=== PATIENT | female | born 1955 | race Caucasian/White ===

== ENCOUNTER 2020-03-28 14:47 | Outpatient (CLI) | payer OTHER, SELFPAY ==
--- NOTE | ~2020-03-28 | MM_ITS ---
EXAMINATION: MM screening [facility] BI w sobeida HISTORY: Screening mammogram TECHNIQUE: Craniocaudal and mediolateral oblique 3-D tomosynthesis images were obtained and synthetic 2-D images were generated. CAD analysis was submitted and interpreted. COMPARISON: Comparison to multiple prior studies sequentially, with oldest reviewed study dated 02/2012. BREAST PARENCHYMAL COMPOSITION: Breast composed of scattered areas of fibroglandular density FINDINGS: Postsurgical changes in the left breast are unchanged, consistent with previous lumpectomy. There is no evidence of suspicious mass, calcification, or architectural distortion to suggest malig anirudh in either breast. There has been no suspicious interval change. IMPRESSION: 1. No mammographic evidence of malignancy. 2. Recommend routine screening mammography in one year. BI-RADS Category 2: Benign finding(s). Reviewed, dictated and finalized at location A.
== END 2020-03-28 14:48 | disposition home or self-care (01) ==
LOC: ANHIMG 14:52
DX: Z12.31 Encounter for screening mammogram for malignant neoplasm of breast (principal)
CPT/HCPCS: 77063; 77067

== ENCOUNTER 2021-09-27 05:44 | Emergency (ER) | payer MEDICARE, OTHER, SELFPAY ==
--- NOTE | ~2021-09-27 | XR_ITS ---
EXAMINATION: XR chest 1V portable DATE: 09/27/2021 07:11 INDICATION: Chest pain. TECHNIQUE: A single frontal view of the chest was obtained. COMPARISON: None. FINDINGS: There are mild airspace opacities in the lower lung zones. No pleural effusion or pneumotho rax. The heart size is normal. IMPRESSION: 1. Mild airspace opacities in the lower lung zones, consistent with atelectasis versus pneumonia. Reviewed, dictated and finalized at location A. LATION INSPECTOR
[2021-09-27 05:47] VITALS: BP 175/95; PULSE 110; RESP 18; TEMP 35.8; O2SAT 100
[2021-09-27] MEDS: SODIUM CHLORIDE 0.9% IV 1,000 ML 999 ML IV CONT (06:19)
--- NOTE | 2021-09-27 06:30 | ECG_ITS ---
Measurements Intervals [place] Rate: 98 P: 64 KS: 165 QRS: 187 QRSD: 131 T: 12 QT: 388 QTc: 497 Interpretive Statements SINUS RHYTHM RIGHT BUNDLE BRANCH BLOCK LEFT POSTERIOR FASCICULAR BLOCK ABNORMAL ECG Electronically Signed On 09-27-2021 6:51:37 [employer]ENTERING MACHINE FEEDER by Hayder Stuart D.O.
[2021-09-27] MEDS: ASPIRIN 325 MG ENTERIC TABLET PO (06:40)
[2021-09-27 06:52] LABS: Basophils Absolute Auto 0.04 K/mm3 (0.00-0.10); Basophils Percent Auto 0.9 % (0.0-1.0); Eosinophils Absolute Auto 0.15 K/mm3 (0.02-0.50); Eosinophils Percent Auto 3.3 % (1.0-6.0); Hematocrit 40.8 % (35.0-42.0); Hemoglobin 13.4 g/dL (11.7-13.8); Immature Granulocyte Absolute 0.01 K/mm3 (0.00-0.00); Immature Granulocyte Percent A 0.2 % (0.0-0.0); Lymphocytes Percent Auto 36.9 % (18.0-42.0); Mean Corpuscular HGB Conc 32.8 g/dL (32.0-36.0); Mean Corpuscular Hemoglobin 28.6 pg (27.0-31.0); Mean Corpuscular Volume 87.2 fL (78.0-102.0); Mean Platelet Volume 9.6 fl (9.2-11.8); Monocytes Absolute Auto 0.39 K/mm3 (0.10-0.90); Monocytes Percent Auto 8.5 % (2.0-11.0); Neutrophils Absolute Auto 2.3 K/mm3 (1.7-7.2); Neutrophils Percent Auto 50.2 % (50.0-70.0); Platelet Count Result 323 K/mm3 (150-420); Red Blood Count 4.68 M/mm3 (4.20-5.40); Red Cell Distribution Width 13.5 % (11.6-14.4); White Blood Count 4.6 K/mm3 (4.8-10.8)
[2021-09-27 07:14] LABS: Alanine Aminotransferase 24 U/L (14-59); Albumin Level 3.6 g/dL (3.4-5.0); Alkaline Phosphatase 80 U/L (46-116); Anion Gap 8 mmol/L (8-16); Aspartate Amino Transferase 14 U/L (15-37); Bilirubin,Total 0.6 mg/dL (0.00-1.00); Blood Urea Nitrogen 20 mg/dL (7-18); Calcium 9.1 mg/dL (8.5-10.1); Carbon Dioxide 29 mmol/L (21-32); Chloride 104 mmol/L (98-108); Estimated CRCL calculation 60 ml/min; Estimated Glomerular Filt Rate > 60; Glucose 121 mg/dL (70-99); Osmolality Calculated 295 mOsm/kg (285-295); Potassium 4.1 mmol/L (3.5-5.1); Sodium 141 mmol/L (136-145); Total Protein 7.1 g/dL (6.4-8.2); Troponin I 5.9 ng/L (0.00-60.4)
[2021-09-27 07:15] LABS: Ethanol < 3 mg/dL (0-6)
[2021-09-27 07:26] VITALS: BP 148/90; PULSE 85; RESP 17; O2SAT 97
--- NOTE | 2021-09-27 07:29 | ED.GENADULT ---
HPI - General Adult General Chief complaint: Unspecified Stated complaint: Heart Racing Related Data Home Medications Medication Instructions Recorded Confirmed ascorbic acid (vitamin C) 500 mg 500 mg PO DAILY 08/05/21 09/27/21 tablet calcium carbonate 500 mg calcium 500 mg PO DAILY 08/05/21 (1,250 mg) tablet cholecalciferol (vitamin D3) 50 100 mcg PO DAILY cap 08/05/21 mcg (2,000 unit) capsule cranberry 400 mg capsule 400 mg PO DAILY 08/05/21 glucosamine sulfate 500 mg tablet 500 mg PO DAILY 08/05/21 omega-3 fatty acids 1,000 mg 1,000 mg PO DAILY 08/05/21 capsule sertraline 50 mg tablet 50 mg PO DAILY 08/05/21 09/27/21 simvastatin 40 mg tablet 40 mg PO DAILY 08/05/21 09/27/21 Allergies Allergy/AdvReac Type Severity Reaction Status Date / Time ampicillin Allergy Severe unknown Verified 09/27/21 06:32 sulfamethoxazole Allergy unknown Verified 09/27/21 06:32 trimethoprim Allergy unknown Verified 09/27/21 06:32 Review of Systems Review of Systems: All systems reviewed & are unremarkable except as noted in HPI and below PMFSH Past Medical History Medical History (Updated 09/27/21 @ 07:34 by Florentin Mccracken MD) Breast cancer Left-2009 Depression Generalized anxiety disorder Hypercholesteremia Surgical History Surgical History (Updated 08/05/21 @ 13:06 by Jamila Herman MA) History of appendectomy History of hysterectomy History of lumpectomy of left breast Family History Family History (Updated 08/05/21 @ 13:07 by Jamila Herman MA) Mother Cancer Heart disease Heart attack Social History Social History (Updated 08/05/21 @ 13:07 by Jamila Herman MA) Smoking status: Never smoker Alcohol intake: current Alcohol use details: social Substance use: never Substance use type: does not use Additional living arrangements comments: Gender identity (if verbalized by the patient): Female Exam Const: General: cooperative, healthy appearing, comfortable and no acute distress HENMT: Head: normal to inspection Eyes: General: appearance normal, both eyes and all related structures Neck: Neck: normal visual inspection, full ROM and no lymphadenopathy Chest: Chest palpation & inspection: normal inspection of the chest and normal palpation of entire chest wall Resp: Effort & Inspection: normal respiratory effort and able to speak in complete sentences Auscultation: clear to auscultation bilaterally Cardio: Jugular venous distension: no JVD Palpation: normal PMI Rate: tachycardic Rhythm: regular rhythm GI: Inspection: normal to inspection Back/Spine/Pelvis: Back: no CVA tenderness Skin: General skin exam: normal color and no rashes or lesions noted Neuro: General: oriented to person, oriented to place and oriented to time Extrem: General: normal to inspection, full ROM and capillary refill normal Psych: Appearance: grossly normal and well kempt Course Course Emergency Course: patient findings have improved current blood pressure 148/90 with heart rate of 85 reviewed x-ray with patient findings atelectasis versus opacity and will start patient on antibiotic. Vital Signs Vital signs: Vital Signs Temperature 35.8 C L 09/27/21 05:47 Pulse Rate 110 H 09/27/21 05:47 Respiratory Rate 18 09/27/21 05:47 Blood Pressure 175/95 H 09/27/21 05:47 Pulse Oximetry 100 09/27/21 05:47 Temperature 35.8 C L 09/27/21 05:47 Pulse Rate 85 09/27/21 07:26 Respiratory Rate 17 09/27/21 07:26 Blood Pressure 148/90 H 09/27/21 07:26 Pulse Oximetry 97 09/27/21 07:26 Medical Decision Making Vital Signs Vital Signs: Vital Signs Temperature 35.8 C L 09/27/21 05:47 Pulse Rate 110 H 09/27/21 05:47 Respiratory Rate 18 09/27/21 05:47 Blood Pressure 175/95 H 09/27/21 05:47 Pulse Oximetry 100 09/27/21 05:47 Temperature 35.8 C L 09/27/21 05:47 Pulse Rate 85 09/27/21 07:26 Respiratory Rate 17
[2021-09-27 07:37] VITALS: BP 132/92; PULSE 84; RESP 20; TEMP 36.9; O2SAT 98
== END 2021-09-27 07:47 | disposition home or self-care (01) ==
PROVIDERS: Emergency Provider Emergency Medicine; PCP Nurse Practitioner Family
DX: R00.0 Tachycardia, unspecified (principal); J06.9 Acute upper respiratory infection, unspecified; Z79.899 Other long term (current) drug therapy; Z85.3 Personal history of malignant neoplasm of breast; E78.00 Pure hypercholesterolemia, unspecified
CPT/HCPCS: 36415; 71045; 80053; 80307; 84484; 85025; 93005; 96360; 99283; 99284; A9270; J7030

== ENCOUNTER 2021-10-24 05:10 | Emergency (ER) | payer MEDICARE, OTHER, SELFPAY ==
--- NOTE | ~2021-10-24 | CT_ITS ---
EXAMINATION: CTA chest PE protocol EXAM DATE: 10/24/2021 06:41 INDICATION: tachycardia, + d dimer . TECHNIQUE: Spiral CTA of the chest (pulmonary arteries) was performed with 100 cc Omnipaque 350 intr avenous contrast injection. Images were acquired during the pulmonary arterial phase. Coronal maxi mum intensity projection 3D-reconstructions were created by the technologist on dedicated workstation . Axial, coronal and sagittal reformatted images were reviewed. The dose-length product (DLP) for t his examination was 356.33 mGy-cm. The exposure was tailored according to patient size (auto mA exp osure control), and iterative reconstruction (ASIR) was used as additional dose reduction technique. There is no prior study for comparison. FINDINGS: Pulmonary arteries are well opacified and without intraluminal filling defects. No thora cic aortic dissection. The lungs are clear. There are no pleural or pericardial effusions. Trach eobronchial tree is patent. There is no mediastinal, hilar or axillary lymphadenopathy. There is no pneumothorax. Heart normal in size. There is moderate coronary arterial calcification, arteria l sclerosis. Hepatic steatosis. Small gastroesophageal hiatal hernia. There is thoracic spondylosis without osteoblastic or osteolytic lesions identified. IMPRESSION: No acute cardiopulmonary findings. Reviewed, dictated and finalized at location A. ING CAREGIVER
--- NOTE | 2021-10-24 05:20 | ECG_ITS ---
Measurements Intervals [place] Rate: 95 P: 31 MI: 162 QRS: 270 QRSD: 144 T: -1 QT: 411 QTc: 519 Interpretive Statements SINUS RHYTHM RIGHT AXIS DEVIATION RIGHT BUNDLE BRANCH BLOCK BASELINE ARTIFACT- I, II, AVR, AVF ABNORMAL ECG Electronically Signed On 10-24-2021 6:53:[address] [employer] by Hayder Stuart D.O.
--- NOTE | 2021-10-24 05:24 | ED.ARRPALP ---
HPI - Arrhythmia/Palpitations General Chief Complaint: Arrhythmia/Palpitations Stated Complaint: Heart Racing Time Seen by Provider: 10/24/21 05:13 Source: patient Mode of arrival: ambulatory Limitations: no limitations History of Present Illness HPI narrative: 66-year-old woman who was previously well comes in today complaining of waking in the middle the night with rapid heart rate. She states that felt like I was going to jump out of her chest. She states that she felt sweaty and had a wooshing sound in her head. The rapid heart rate has since resolved. She denies shortness of breath, chest pain, lightheadedness, syncope, nausea, vomiting and ankle swelling. She had a similar episode on September 27 after which she was diagnosed with pneumonia. MD complaint: rapid heart beat and heart racing Onset (ago): minute(s) Duration: constant and now resolved Severity: moderate Context: awoke with symptoms Associated symptoms: diaphoresis Related Data Home Medications Medication Instructions Recorded Confirmed sertraline 50 mg tablet 50 mg PO DAILY 08/05/21 10/24/21 simvastatin 40 mg tablet 40 mg PO DAILY 08/05/21 10/24/21 Allergies Allergy/AdvReac Type Severity Reaction Status Date / Time ampicillin Allergy Severe unknown Verified 10/24/21 05:24 sulfamethoxazole Allergy unknown Verified 10/24/21 05:24 trimethoprim Allergy unknown Verified 10/24/21 05:24 Review of Systems Review of Systems: All systems reviewed & are unremarkable except as noted in HPI and below Constitutional: Constitutional: Denies chills and Denies fever(s) Eyes: Eyes: Denies change in vision and Denies photophobia ENT: Denies nasal congestion and Denies sore throat Cardiovascular: Cardiovascular: Denies chest pain, Reports rapid heart rate and Denies radiating jaw, neck or arm pain Respiratory: Respiratory: Denies cough, Denies dyspnea and Denies wheezing Gastrointestinal: Gastrointestinal: Denies abdominal pain, Denies nausea and Denies vomiting Genitourinary: Genitourinary: Denies nocturia and Denies dysuria Musculoskeletal: Musculoskeletal: Denies back pain, Denies arthralgias and Denies joint swelling Integumentary/Breasts: Skin/Breast: Denies pruritus, Denies erythema and Denies rash Neurologic: Denies confusion, Denies vertigo, Denies dizziness, Denies syncope, Denies headache(s), Denies focal weakness and Denies weakness Psychiatric: Psychiatric: Reports anxiety Allergic/Immunologic: Allergic/Immunologic: Denies lip swelling and Denies throat swelling PMFSH Past Medical History Medical History Breast cancer Left-2009 Depression Generalized anxiety disorder Hypercholesteremia Surgical History Surgical History History of appendectomy History of hysterectomy History of lumpectomy of left breast Family History Family History (Updated 08/05/21 @ 13:07 by Jamila Herman MA) Mother Cancer Heart disease Heart attack Social History Social History Smoking status: Never smoker Alcohol intake: current Alcohol use details: social Substance use: never Substance use type: does not use Additional living arrangements comments: Gender identity (if verbalized by the patient): Female Exam Const: General: healthy appearing, no acute distress and alert Orientation/consciousness: patient oriented x3 Limitations: no limitations Eyes: Conjunctivae: conjunctivae normal Pupils: Equal, round and reactive pupils present EOM: EOMs intact bilaterally Resp: Effort & Inspection: normal respiratory effort and not labored Auscultation: clear to auscultation bilaterally, no rales, no rhonchi and no wheezes Cardio: Rate: regular rate Rhythm: regular rhythm Heart sounds: no murmurs Skin: General skin exam: normal color, no jaund
[2021-10-24 05:27] VITALS: BP 148/88; PULSE 106; RESP 20; TEMP 36.5; O2SAT 100
[2021-10-24 05:34] LABS: Glucose Point of Care 111 mg/dl (65-105)
[2021-10-24 05:39] LABS: Basophils Absolute Auto 0.07 K/mm3 (0.00-0.10); Eosinophils Absolute Auto 0.17 K/mm3 (0.02-0.50); Eosinophils Percent Auto 2.5 % (1.0-6.0); Hemoglobin 13.6 g/dL (11.7-13.8); Immature Granulocyte Absolute 0.02 K/mm3 (0.00-0.00); Immature Granulocyte Percent A 0.3 % (0.0-0.0); Lymphocytes Absolute Auto 2.72 K/mm3 (1.10-4.50); Lymphocytes Percent Auto 40.7 % (18.0-42.0); Mean Corpuscular HGB Conc 32.4 g/dL (32.0-36.0); Mean Corpuscular Hemoglobin 28.9 pg (27.0-31.0); Mean Corpuscular Volume 89.2 fL (78.0-102.0); Mean Platelet Volume 9.2 fl (9.2-11.8); Monocytes Absolute Auto 0.54 K/mm3 (0.10-0.90); Monocytes Percent Auto 8.1 % (2.0-11.0); Neutrophils Absolute Auto 3.2 K/mm3 (1.7-7.2); Neutrophils Percent Auto 47.4 % (50.0-70.0); Platelet Count Result 321 K/mm3 (150-420); Red Blood Count 4.71 M/mm3 (4.20-5.40); Red Cell Distribution Width 13.2 % (11.6-14.4); White Blood Count 6.7 K/mm3 (4.8-10.8)
[2021-10-24] MEDS: SODIUM CHLORIDE 0.9% IV 1,000 ML 999 ML IV CONT (05:41)
[2021-10-24 05:56] LABS: Alanine Aminotransferase 21 U/L (14-59); Albumin Level 3.8 g/dL (3.4-5.0); Alkaline Phosphatase 83 U/L (46-116); Anion Gap 10 mmol/L (8-16); Aspartate Amino Transferase 12 U/L (15-37); Bilirubin,Total 0.5 mg/dL (0.00-1.00); Blood Urea Nitrogen 21 mg/dL (7-18); Calcium 9.1 mg/dL (8.5-10.1); Carbon Dioxide 27 mmol/L (21-32); Chloride 103 mmol/L (98-108); Estimated CRCL calculation 65 ml/min; Estimated Glomerular Filt Rate > 60; Glucose 125 mg/dL (70-99); Osmolality Calculated 294 mOsm/kg (285-295); Potassium 3.4 mmol/L (3.5-5.1); Sodium 140 mmol/L (136-145); Total Protein 7.4 g/dL (6.4-8.2)
[2021-10-24 05:58] LABS: INR 0.9; Partial Thromboplastin Time 24.8 SEC (23.90-30.70); Prothrombin Time 10.1 Seconds (9.50-12.10)
[2021-10-24 06:07] LABS: D Dimer 1.82 mg/L (0.19-0.50)
[2021-10-24 06:20] LABS: NT Pro B Type Natriuretic Pept 121 pg/mL (0-125)
[2021-10-24 06:20] LABS: Magnesium 2.1 mg/dL (1.8-2.4)
[2021-10-24 07:21] VITALS: BP 133/85; PULSE 91; RESP 20; TEMP 36.7; O2SAT 99
== END 2021-10-24 07:24 | disposition home or self-care (01) ==
PROVIDERS: Emergency Provider Emergency Medicine; PCP Nurse Practitioner Family
DX: R00.2 Palpitations (principal); E87.6 Hypokalemia; E78.00 Pure hypercholesterolemia, unspecified; Z85.3 Personal history of malignant neoplasm of breast
CPT/HCPCS: 36415; 71275; 80053; 82948; 83735; 83880; 84484; 85025; 85380; 85610; 85730; 93005; 96360; 99283; 99284; J7030; Q9967

== ENCOUNTER 2021-10-29 10:57 | Outpatient (CLI) | payer MEDICARE, OTHER, SELFPAY ==
--- NOTE | 2021-11-01 11:43 | WPDHOLTEREM ---
Holter/Event Monitor Holter/Event Monitor Date of procedure: 10/29/21 Holter/Event Procedure: 48 Hr Holter Monitor Indications: Palpitations Conclusion: 1. 48 hour holter monitor on 10/29/21. 2. Predominant rhythm is sinus rhythm. HR range 49-135 bpm; average HR 76 bpm. 3. There are 90 premature supraventricular complexes and 2 supraventricular couplets. There are 2 episodes of atrial tachycardia, fastest at 141 bpm and longest lasted 7 beats. 4. There are 11 premature ventricular complexes. No ventricular tachycardia. 5. No sinoatrial or atrioventricular blocks. Right bundle branch block. No significant pauses greater than 2 seconds. 6. Patient reports symptoms of heart pounding which demonstrate sinus rhythm, HR range 72-76 bpm and a PAC.
== END 2021-10-29 10:58 | disposition home or self-care (01) ==
PROVIDERS: PCP Nurse Practitioner Family; Visit Provider Nurse Practitioner Family
DX: R00.2 Palpitations (principal); R00.0 Tachycardia, unspecified
CPT/HCPCS: 93225; 93226

== ENCOUNTER 2021-12-18 07:27 | Outpatient (CLI) | payer MEDICARE, OTHER, SELFPAY ==
--- NOTE | ~2021-12-18 | US_ITS ---
EXAMINATION: US abdomen limited DATE: 12/18/2021 07:50 INDICATION: Left upper quadrant pain TECHNIQUE: Multiple grayscale and Doppler ultrasound images of the abdomen were obtained. COMPARISON: None available FINDINGS: The left kidney measures 9.6 x 4.3 x 4.2 cm. The left kidney demonstrates normal parenchyma l echogenicity. There is no hydronephrosis. The spleen is normal in appearance and measures 10.3 cm. IMPRESSION: 1. No sonographic correlate for the patient's symptoms. Reviewed, dictated and finalized at location B.
[2021-12-18 07:40] LABS: Add Urine Microscopic? YES; Appearance Urine Clear (Clear); Bilirubin Urine Negative (Negative); Blood Urine Negative (Negative); Color Urine Light Yellow (Yellow); Glucose Urine UA Negative (Negative); Ketones Urine Negative (Negative); Leukocyte Esterase Ur Negative LEU/UL (Negative); Nitrate Urine Positive (Negative); Protein Urine Negative (Negative); Specific Grav Ur 1.015 (1.010-1.020); Urobilinogen Urine 0.2 mg/dL (0.2-1.0)
[2021-12-18 07:56] LABS: Bacteria Urine 1+ /hpf; RBC Urine None seen /hpf (0-2); Squamous Epithelial Cell Urine Rare /hpf (Few); WBC Urine 0-3 /hpf (0-3)
== END 2021-12-18 07:28 | disposition home or self-care (01) ==
LOC: CHSIMG 07:29
PROVIDERS: PCP Nurse Practitioner Family; Visit Provider Nurse Practitioner Family
DX: R10.12 Left upper quadrant pain (principal); R82.90 Unspecified abnormal findings in urine
CPT/HCPCS: 76705; 81001; 87086

== ENCOUNTER 2022-04-07 07:55 | Outpatient (CLI) | payer MEDICARE, OTHER, SELFPAY ==
--- NOTE | ~2022-04-07 | CT_ITS ---
EXAMINATION: CT chest abdomen pelvis w con DATE: 04/07/2022 08:44 INDICATION: Left-sided abdominal discomfort since Covid infection 8 months ago; feels like something is vibrating. History of breast cancer. TECHNIQUE: Computed tomography (CT) of the chest, abdomen, and pelvis was performed with 100 CC Omnip aque 350 intravenous contrast. Automated exposure control and iterative reconstruction technique were employed. Exam dose: 1261.90 mGy-cm total exam DLP. COMPARISON: 12/18/2021 Limited abdominal ultrasound examination 10/24/2021 CT pulmonary scan FINDINGS: CHEST CT: Stable chronic discoid scarring at the left lung base slight dome of left diaphragm No pulmonary infiltrate or consolidation or pulmonary mass density. Included portions of the thyroid gland are normal; normal size, no mass lesion. The upper aspect of e ach lobe however is excluded from examination. No hilar or mediastinal mass lesion or lymphadenopathy. No thoracic aortic aneurysm or dissection. Normal heart size. There is coronary artery calcification. No pericardial or pleural effusion. Small sliding hiatal hernia. ABDOMEN/PELVIS CT: Hepatic steatosis. No hepatic space-occupying mass lesion or bile duct dilatation. The gallbladder ap pears normal. No gallbladder wall thickening or pericholecystic fluid or fat stranding. Normal splenic size. No pancreatic mass lesion, calcification or ductal dilatation. Normal morphology of the adrenal glands. No renal mass lesion, urinary tract calculus or hydroureteronephrosis. The urinary bladder is unremar kable. Diverticulosis of left and right colon; no CT evidence of diverticulitis. No bowel obstruction, bowel wall thickening, pneumatosis or intraperitoneal free air. Small fat-containing umbilical hernia. Mild to moderate compression fracture deformity of L2 since 10/24/2021. Chronic sclerotic lesion of the anteroinferior aspect of the T7 vertebral body, likely a bone island. Mild degenerative changes of the thoracic and lumbar spine.. IMPRESSION: Chronic left lower lobe basilar scarring Small sliding hiatal hernia Hepatic steatosis Diverticulosis of the colon; no evidence of diverticulitis Interval mild to moderate compression fracture deformity of L2 since 10/24/2021 Reviewed, dictated and finalized at Location A. Reviewed, dictated and finalized at location A.
[2022-04-07 08:24] LABS: Estimated Glomerular Filt Rate > 60
== END 2022-04-07 07:56 | disposition home or self-care (01) ==
LOC: CHSIMG 07:56
PROVIDERS: PCP Nurse Practitioner Family; Visit Provider Nurse Practitioner Family
DX: R10.12 Left upper quadrant pain (principal)
CPT/HCPCS: 71260; 74177; Q9967

== ENCOUNTER 2022-04-09 12:20 | Outpatient (CLI) | payer MEDICARE, OTHER, SELFPAY ==
--- NOTE | ~2022-04-09 | DEXA_ITS ---
Bone Density Report Name: JALEEL CASON Age: 66 Sex: Female Ethnicity: White Date of : 1955 Indication: postmenopausal; screening for osteoporosis; height loss; cancer; hysterectomy; Referring Provider: Rosenda Canseco Study: Bone densitometry was performed. Exam Date: April 09, 2022 Accession number: [id number] Bone Density: Region BMD T-score Z-score Classification AP Spine(L1-L4) 1.097 0.5 2.3 Normal Femoral Neck (Left) 0.821 -0.2 1.3 Normal Total Hip (Left) 0.998 0.5 1.7 Normal Femoral Neck (Right) 0.801 -0.4 1.1 Normal Total Hip (Right) 0.986 0.4 1.6 Normal Femoral Neck Mean 0.811 -0.3 1.2 Normal Total Hip Mean 0.992 0.4 1.7 Normal World Health Organization criteria for BMD impression classify patients as: Normal (T-score at or above -1.0), Osteopenia (T-score between -1.0 and -2.5), or Osteoporosis (T-score at or below -2.5). 10-year Fracture Risk: FRAX not reported because: All T-scores for Spine Total, Hip Total, Femoral Neck at or above -1.0 Clinical Information Provided by Patient: Has used the following medications: Fosamax (i.e. alendronate), Vitamin D, Calcium Has the following medical conditions: Cancer, Hysterectomy Patient maximum height was 67 Menopause Age: 33 No regular weight bearing exercise Does not regularly consume dairy products Drinks caffeinated beverages Onset of menses at age 16 Number of children 2 Impression: The patient has normal bone mass. Discussion: BONE DENSITY IS ABOVE THE MINIMUM DESIRABLE LEVEL AT ALL SKELETAL SITES TESTED. This patient?s bone mineral density is above the minimum desirable level (T-score -1.0 or better) at all sites measured. The patient should follow a healthful lifestyle (good nutrition with adequate calcium and vitamin D, and appropriate weight-bearing exercise). Follow-Up: Consider repeating this study in 5 years or sooner if there is some new clinical indication. Reported by: Dr. Raghavendra Dumont on 04/09/2022 12:53:00 PM. Reviewed, dictated and finalized at location [facility]
== END 2022-04-09 12:21 | disposition home or self-care (01) ==
LOC: CHSIMG 12:22
PROVIDERS: PCP Nurse Practitioner Family; Visit Provider Nurse Practitioner Family
DX: S32.000A Wedge compression fracture of unspecified lumbar vertebra, initial encounter for closed fracture (principal); Z78.0 Asymptomatic menopausal state
CPT/HCPCS: 77080

== ENCOUNTER 2022-10-03 10:16 | Outpatient (CLI) | payer MEDICARE, OTHER, SELFPAY ==
[2022-10-03 10:40] LABS: Hematocrit 41.1 % (35.0-42.0); Hemoglobin 13.4 g/dL (11.7-13.8); Mean Corpuscular HGB Conc 32.6 g/dL (32.0-36.0); Mean Corpuscular Hemoglobin 29.1 pg (27.0-31.0); Mean Corpuscular Volume 89.3 fL (78.0-102.0); Mean Platelet Volume 9.5 fl (9.2-11.8); Platelet Count Result 344 K/mm3 (150-420); Red Cell Distribution Width 12.9 % (11.6-14.4); White Blood Count 5.2 K/mm3 (4.8-10.8)
[2022-10-03 11:09] LABS: Alanine Aminotransferase 25 U/L (14-59); Albumin Level 3.8 g/dL (3.4-5.0); Alkaline Phosphatase 76 U/L (46-116); Anion Gap 5 mmol/L (8-16); Aspartate Amino Transferase 17 U/L (15-37); Bilirubin,Total 0.8 mg/dL (0.00-1.00); Blood Urea Nitrogen 12 mg/dL (7-18); Carbon Dioxide 32 mmol/L (21-32); Chloride 103 mmol/L (98-108); Cholesterol 161 mg/dL (0-200); Estimated Glomerular Filt Rate > 60; Glucose 97 mg/dL (70-99); HDL Direct 57 mg/dL (40-60); LDL Cholesterol Calculated 79 mg/dL (<130); Osmolality Calculated 289 mOsm/kg (285-295); Sodium 140 mmol/L (136-145); Triglycerides 123 mg/dL (0-150)
== END 2022-10-03 10:17 | disposition home or self-care (01) ==
LOC: CHSLAB 10:18
PROVIDERS: PCP Family Medicine; Visit Provider Family Medicine
DX: E78.00 Pure hypercholesterolemia, unspecified (principal)
CPT/HCPCS: 36415; 80053; 80061; 85027

== ENCOUNTER 2023-04-07 12:46 | Outpatient (CLI) | payer MEDICARE, OTHER, SELFPAY ==
--- NOTE | ~2023-04-07 | MM_ITS ---
EXAMINATION: MM screening [facility] BI w sobeida HISTORY: Screening mammogram TECHNIQUE: Craniocaudal and mediolateral oblique 3-D tomosynthesis images were obtained and synthetic 2-D images were generated. CAD analysis was submitted and interpreted. COMPARISON: 02/26/2021 outside mammogram examination BREAST PARENCHYMAL COMPOSITION: There are scattered areas of fibroglandular density. FINDINGS: Status post left partial mastectomy for history of breast cancer. Bilateral benign calcifications, including calcified fat necrosis, secretory calcifications, calcifie d microhematomas.. There is no evidence of suspicious mass, calcification, or architectural distortio n to suggest malignancy in either breast. There has been no suspicious interval change. IMPRESSION: 1. Status post left partial mastectomy for breast cancer. No mammographic evidence of malignancy. 2. Recommend routine screening mammography in one year. BI-RADS Category 2: Benign finding(s). Reviewed, dictated and finalized at location A. IMPRESSION: 1. Status post left partial mastectomy for breast cancer. No mammographic evide nce of malignancy. 2. Recommend routine screening mammography in one year. BI-RADS Category 2: Benign finding(s).
== END 2023-04-07 12:47 | disposition home or self-care (01) ==
LOC: CHSIMG 12:48
PROVIDERS: PCP Family Medicine; Visit Provider Family Medicine
DX: Z12.31 Encounter for screening mammogram for malignant neoplasm of breast (principal)
CPT/HCPCS: 77063; 77067

== ENCOUNTER 2024-03-23 08:54 | Outpatient (CLI) | payer MEDICARE, SELFPAY ==
[2024-03-23 09:05] LABS: Basophils Absolute Auto 0.08 K/mm3 (0.00-0.10); Basophils Percent Auto 1.1 % (0.0-1.0); Eosinophils Absolute Auto 0.23 K/mm3 (0.02-0.50); Eosinophils Percent Auto 3.1 % (1.0-6.0); Hematocrit 43.2 % (35.0-42.0); Hemoglobin 14.3 g/dL (11.7-13.8); Immature Granulocyte Absolute 0.02 K/mm3 (0.00-0.00); Immature Granulocyte Percent A 0.3 % (0.0-0.0); Lymphocytes Percent Auto 32.2 % (18.0-42.0); Mean Corpuscular HGB Conc 33.1 g/dL (32-36); Mean Corpuscular Hemoglobin 29.1 pg (27.0-31.0); Mean Corpuscular Volume 87.8 fL (78.0-102.0); Mean Platelet Volume 9.1 fl (9.2-11.8); Monocytes Absolute Auto 0.55 K/mm3 (0.10-0.90); Monocytes Percent Auto 7.4 % (2.0-11.0); Neutrophils Absolute Auto 4.17 K/mm3 (1.70-7.20); Neutrophils Percent Auto 55.9 % (50.0-70.0); Platelet Count Result 356 K/mm3 (150-420); Red Blood Count 4.92 M/mm3 (4.20-5.40); Red Cell Distribution Width 12.4 % (11.6-14.4); White Blood Count 7.5 K/mm3 (4.8-10.8)
[2024-03-23 09:32] LABS: Alanine Aminotransferase 23 U/L (14-59); Albumin Level 3.7 g/dL (3.4-5.0); Alkaline Phosphatase 82 U/L (46-116); Anion Gap 9 mmol/L (4-12); Aspartate Amino Transferase 17 U/L (15-37); Bilirubin,Total 0.7 mg/dL (0.00-1.00); Blood Urea Nitrogen 14 mg/dL (7-18); Calcium 9.4 mg/dL (8.5-10.1); Carbon Dioxide 29 mmol/L (21-32); Chloride 101 mmol/L (98-108); Cholesterol 182 mg/dL (0-200); Estimated Glomerular Filt Rate > 60; Glucose 105 mg/dL (70-99); HDL Direct 50 mg/dL (40-60); LDL Cholesterol Calculated 93 mg/dL (<130); Osmolality Calculated 288 mOsm/kg (285-295); Potassium 4.1 mmol/L (3.5-5.1); Sodium 139 mmol/L (136-145); Total Protein 7.1 g/dL (6.4-8.2); Triglycerides 193 mg/dL (0-150)
== END 2024-03-23 08:55 | disposition home or self-care (01) ==
LOC: CHSLAB 08:55
PROVIDERS: PCP Family Medicine; Visit Provider Family Medicine
DX: E78.00 Pure hypercholesterolemia, unspecified (principal); Z78.0 Asymptomatic menopausal state; E66.9 Obesity, unspecified; R00.2 Palpitations
CPT/HCPCS: 36415; 80053; 80061; 85025

== ENCOUNTER 2024-05-02 12:29 | Outpatient (CLI) | payer MEDICARE, OTHER, SELFPAY ==
--- NOTE | ~2024-05-02 | MM_ITS ---
EXAMINATION: MM screening [facility] BI w sobeida HISTORY: Screening TECHNIQUE: Craniocaudal and mediolateral oblique 3-D tomosynthesis images were obtained and synthetic 2-D images were generated. CAD analysis was submitted and interpreted. COMPARISON: Comparison to multiple prior studies sequentially, with oldest reviewed study dated 02/21. BREAST PARENCHYMAL COMPOSITION: Not dense: There are scattered areas of fibroglandular density. FINDINGS: There is no evidence of suspicious mass, calcification, or architectural distortion to sugg est malignancy in either breast. There has been no suspicious interval change. IMPRESSION: 1. No mammographic evidence of malignancy. 2. Recommend routine screening mammography in one year. BI-RADS Category 1: Negative Reviewed, dictated and finalized at location B.
== END 2024-05-02 12:30 | disposition home or self-care (01) ==
LOC: CHSIMG 12:30
PROVIDERS: PCP Family Medicine; Visit Provider Family Medicine
DX: Z12.31 Encounter for screening mammogram for malignant neoplasm of breast (principal)
CPT/HCPCS: 77063; 77067

== ENCOUNTER 2025-05-16 12:54 | Outpatient (CLI) | payer MEDICARE, OTHER, SELFPAY ==
--- NOTE | ~2025-05-16 | MM_ITS ---
EXAMINATION: MM screening katya BI w sobeida HISTORY: Screening mammogram, family history of breast cancer in her sister. TECHNIQUE: Craniocaudal and mediolateral oblique 3-D tomosynthesis images were obtained and synthetic 2-D images were generated. CAD analysis was submitted and interpreted. COMPARISON: 05/02/2024, 03/28/2023, 03/28/2020 BREAST PARENCHYMAL COMPOSITION:Not Dense. There are scattered areas of fibroglandular density. FINDINGS: Stable postoperative change of the left breast with associated benign calcifications. No suspicious mass, calcification, or architectural distortion are identified in either breast to suggest malignancy. There has been no suspicious interval change. IMPRESSION: No mammographic evidence of malignancy. Recommend routine screening mammography in one year. BI-RADS Category 2: Benign finding(s). Reviewed, dictated and finalized at location .
--- OUTSIDE RECORDS SUMMARY | 2025-05-16 13:04 | XMS_ITS | Patient Health Record ---
Author Organization [facility] Address [address] [place], [place] [id number] Care Team Providers Care Correctional Supply Supervisor Name Role Phone BRANDI FORD Unavailable [phone] Milo Galdamez Unavailable Unavailable Allergies Allergen (clinical drug ingredient) Drug/Non Drug Allergy documented on EMR Reaction Allergy Type Onset Date Status sulfamethoxazole / trimethoprim Bactrim Unknown Drug Allergy Active ampicillin Ampicillin Unknown Drug Allergy Activ e Reason For Referral No Information Social History Tobacco Use: Social History Observation Description Date Details (start date - stop date) Never Smoker NA - NA Tobacco Use/Smoking Question Answer Notes Tobacco use: nonsmoker Plan Of Treatment No Information Insurance Providers Payer Name Payer Address Payer Phone Subscriber Number Group Number Insured Name Patient Relationship to Insured Coverage Start Date Coverage End Date Medicare Part [facility] [address] [place] [address] [id number] JALEEL CASON Self - patient is the insured for Life ([employer]) [address] [place], [place] [id number] JALEEL CASON Self - patient is the insured [facility] B [address] [place], [place] [phone] [id number] JALEEL CASON Self - patient is the insured Medical (General) History Medical History History ICD Code Cancer Arthritis varicose veins Surgical History Surgery Date(Month/Year) Hysterectomy lumpectomy
--- OUTSIDE RECORDS SUMMARY | 2025-05-16 13:04 | XMS_ITS | Clinical Summary ---
Author Organization [facility] Address [address] [place] [address] Care Team Providers Care Cisco Administrator Name Role Phone Unavailable Primary Care Provider Unavailabl e Source Comments [facility],non-owned Affiliates and Associated Physician Practices is amultiple site organization consisting of ambulatory clinics and hospital sitesin [place], [place], [place] and [place]. This disclosure is being madepursuant to the Care Everywhere program and may not contain all information available regarding this patient. Last updated 18.[facility] Allergies Active Allergy Reactions Criticality Noted Date Comments Ampicillin Urticaria Medium 06/30/2018 Sulfamethoxazole W-Trimethoprim Urticaria Medium 11/2017 Immunizations Immunization Administration Dates Next Due INFLUENZA VACCINE, QUADR. (F LUZONE; FLULAVAL; FLUARIX; AFLURIA QUADRIVALENT; 6MO+), 0.5 ML (IIV4) 07/05/2019 iNFLUENZA VACCINE, RECOM-CRABTREE, QUADR. 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 Gender Identity Not on file Sexual Orientation Not on file Plan of Treatment Health Maintenance Due Date Last Done Comments BONE DENSITY TESTING 1955 COLOGUARD (AGES 45-75) - COL ON CA SCREENING 1955 COLON MONITORING 1955 COLONOSCOPY - COLON CA SCREENING 1955 CT COLONOGRAPHY - COLON CA SCREENING 1955 Colorectal Cancer Screening 1955 FIT - COLON CA SCREENING 1955 FLEX SIG - COLON CA SCREENING 1955 LIPID TESTING 1955 MAMMOGRAM 1955 HEPATITIS C SCREENING 08/17/1974 DTAP/TDAP/TD VACCINES (1 - Tdap) 1975 PNEUMOCOCCAL VACCINE 50+ (1 of 1 - PCV) 2006 ZOSTER VACCINE (1 of 2) 2006 COVID-19 VACCINE (1 - 2023-2 5 season) 2024 DEPRESSION SCREENING 09/28/2024 INFLUENZA VACCINE (#1) 2025 9, 06/30/2018 Respiratory Syncytial Virus (RSV) Vaccine Pt: or over 60 yrs (1 - 1-dose 75+ series) 2031 HEPATITIS B VACCINE Aged Out No longe r eligible based on patient's age to complete this topic HIB VACCINE Aged Out No longer eligi ble based on patient's age to complete this topic HPV VACCINE Aged Out No longer eligi ble based on patient's age to complete this topic MENINGOCOCCAL (Group B) VACCINE SHARED DECISION-MAKING Aged Out No longer eligible based on patient's age to complete this topic MENINGOCOCCAL GROUPS A/C/Y/W VACCINE Aged Out No longer eligible b ased on patient's age to complete this topic Insurance
--- OUTSIDE RECORDS SUMMARY | 2025-05-16 13:04 | XMS_ITS | Clinical Summary ---
Author Organization [facility] [address] [facility] [address] Address [address] [place] [address] Care Team Providers Care Supervisor Decorating Name Role Phone Rosenda Canseco HIDE DYER Primary Care Provide r Allergies Active Allergy Reactions Criticality Noted Date Comments Ampicillin Hives High Sulfamethoxazole Hives High Sulfamethoxazole-Trimethoprim Trimethoprim Medications sertraline (ZOLOFT) 50 mg tablet Take 50 mg by mouth daily. Active cholecalciferol (VITAMIN D-3) 2,000 unit tablet Take 2,000 Units by mouth daily. Active cyanocobalamin (Vitamin B-12) 500 mcg tabletIndicatio ns:Prevention of Vitamin B12 Deficiency Take 500 mcg by mouth daily. Active ascorbic acid (ascorbic acid) 500 mg tablet,chewable Take 500 mg by mouth daily. Active glucosamine HCl 1,500 mg tablet Take 1,500 Int'l Units by mouth daily. Active omega 8-xfm-wdb-fish oil 1,000 mg (120 mg-180 mg) capsule Take 1,000 Int'l Units by mouth daily. Active multivitamin tablet tabletIndicatio ns:Vitamin Deficiency Prevention Take 1 tablet by mouth daily. Active cranberry extract 50 mg tablet,chewable Take 50 tablets by mouth daily. Active simvastatin (ZOCOR) 40 mg tablet Take 40 mg by mouth daily. 01/11/2018 Active potassium 99 mg tablet Take by mouth daily Active metoprolol tartrate (LOPRESSOR) 25 mg immediate release tabletIndicatio ns:Palpitations Take 0.5 tablets (12.5 mg total) by mouth 2 (two) times a day 30 tablet 11 11/14/2021 Active Active Problems Problem Noted Date Diagnosed Date Nonsustained ventricular tachycardia 12/12/2021 Palpitations 11/14/2021 History of COVID-19 11/14/2021 Lipid screening 04/11/2021 Overview (04/11/2021): Added automatically from request for surgery [id number] Dyslipidemia 03/05/2017 Pulmonary hypertension 03/05/2017 Family history of ischemic heart disease 017 Right bundle branch block 03/05/2017 Malignant neoplasm of upper-outer quadrant of fe male breast 04/18/2016 Malignant neoplasm of breast 06/04/2010 Surgical History Surgery Date Site/Laterality Comments BREAST LUMPECTOMY 09/28/2008 - 09/27/2009 HYSTERECTOMY 30s COLONOSCOPY 09/28/2010 - 09/27/2011 [employer] Medical History Medical History Date Comments Hx Other Medical RBBB, LPFb, ppu lmonary hypertension his lipid Hyperlipidemia Anxiety ? Cancer (HCC) 2008 Family History Medical History Relation Name Comments Heart attack Brother Nicolas hernandez Cancer Father Nicolas Prostate cancer Father Nicolas Heart attack Mother Vania Heart disease Mother Vania Lymphoma Mother Vania Breast cancer Sister Thereasa Cancer Sister Thereasa Relation Name Status Comments Brother Nicolas jr Father Nicolas Mother Vania Sister Thereasa Social History Tobacco Use Types Packs/Day Years Used Date Smoking Tobacco: Never Smokeless Tobacco: Never Alcohol Use Standard Drinks/Week Comments Yes 0 (1 standard drink = 0.6 oz pur e alcohol) Personal Safety Answer Date Recorded Getting School Help Needed Not on file 11/27 Comments Unknown Sex and Gender Information Value Date Recorded Sex Assigned at Not on file Legal Sex Female 2:24 AM [employer] Gender Identity Female 11/11/2021 8:16 PM [employer] Sexual Orientation Not on file Obstetrics History Last Filed Vital Signs Vital Sign Reading Time Taken Comments Blood Pressure 112/80 12/12/2021 9:38 AM CDT Pulse 75 12/12/2021 9:38 AM CDT Temperature 36.7 C (98.1 F) 07/22/2021 12:52 PM CDT Respiratory Rate 16 11/14/2021 1:05 PM [employer] Oxygen Saturation 97% 12/12/2021 9:38 AM CDT Inhaled Oxygen Concentration - - Weight 88.9 kg (196 lb) 12/12/2021 9:38 AM CDT Height 167.6 cm (5' 6) 12/12/2021 9:38 AM CDT Body Mass Index 31.64 12/12/2021 9:38 AM CDT Plan of Treatment Not on file Insurance MEDICARE [facility] Address: [facility] [address] [place] [address] FOR [facility] MEDICARE [facility] CLAIMS Advance Directives For more information, please contact: [phone] * Full Code (Latest Code Status on File) Date Activated Date Inactivated Comments 07/22/2021 10:49 AM 07/22/2021 5:20 PM * Full Code Date Activated Date Inactivated Comments 07/22/2021 10:48 AM 07/22/2021 10:49 AM Care Teams Supervisor Decorating Relationship Specialty Start Date End Date Rosenda Canseco NP [address] [place] [address] PCP - General Nurse Practitioner 11/27/21
== END 2025-05-16 12:55 | disposition home or self-care (01) ==
LOC: CHSIMG 12:54
PROVIDERS: PCP Family Medicine; Visit Provider Family Medicine
DX: Z12.31 Encounter for screening mammogram for malignant neoplasm of breast (principal)
CPT/HCPCS: 77063; 77067

== ENCOUNTER 2025-05-26 08:11 | Outpatient (CLI) | payer MEDICARE, SELFPAY ==
--- OUTSIDE RECORDS SUMMARY | 2025-05-26 08:16 | XMS_ITS | Continuity of Care Document ---
Author Name [facility] Organization [facility] Care Team Providers Care Oil Sprayer Name Role Phone [facility] Unavailable Unavailable Problems Combined list of problems from Department of Defense and Veterans Affairs facilities. It does not include entries that were removed or entered in error. 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 DoD X-Ray Chest Lungs Solitary Pulmonary Nodule (___ cm) Active Condition DoD urinary frequency Active Condition DoD SUPERFICIAL INJURY - BLISTER ON VAGINA Inactive Condition DoD OSTEOARTHRITIS HAND Active Condition Do D Outpatient Physician Consultation Active Condition DoD visit for: issue repeat prescription for medication Inactive Condition DoD OSTEOPENIA Active Condition DoD foot pain (soft tissue) Active Condition [facility] visit for: examination Inactive Condition [facility] visit for: refer patient without exam or treatment Inactive Condition DoD BREAST CANCER Active Condition DoD IMPAIRED FASTING GLUCOSE Active Condition DoD Blood Pressure Isolated Elevated Active Condition DoD CYSTITIS ACUTE Inactive Condition DoD Aftercare Active Condition DoD visit for: screening malignant neoplasm colon Active Condition DoD Pelvic Exam (Internal) Inactive Condition DoD visit for: screening exam malignant neoplasm ovary Active Condition DoD MENOPAUSE SYMPTOMATIC Active Condition DoD HYPERLIPIDEMIA Active Condition DoD CYSTITIS Inactive Condition DoD DERMATOMYCOSIS TINEA VERSICOLOR Inactive Condition requests refill of selenium, DoD BURSITIS PREPATELLAR Active Condition will have PT eval, would also like Rheum to eval for possible RA. RF pending DoD joint pain, localized in the knee Active Condition DoD FUNCTIONAL MURMUR Active Condition DoD visit for: screening exam malignant neoplasm breast Inactive Condition DoD SKIN DISORDER EXANTHEM Active Condition DoD Preventive Medicine Estab Patient Checkup Adult 40-64 Inactive Condition DoD PALPITATIONS Active Condition DoD visit for: administrative purpose Inactive Condition DoD RAYNAUD'S DISEASE Active Condition DoD visit for: issue repeat prescription Inactive Condition DoD Laboratory Studies Inactive Condition Do D URINARY TRACT INFECTION Inactive Condition DoD Medications Combined list of outpatient medications from Department of Defense and Veterans Affairs facilities.Medications provided include 1) outpatient medications from the last 15 months, and 2) patient-reported medications. Medication Details Route Status Patient Instructions Prescription Expires Prescription Number Last Dispense Date Ordering Provider Order Date Order Qty Source METOPROLOL TARTRATE (metoprolol tartrate), 50 MG, TABLET, ORAL, ALEMBIC PHARMAC, 1000 ea. BOTTLE Active [id number] 2023 60 Pharmac y Data Transac tion Service Facilit y SERTRALINE HCL (SERTRALINE HCL), 100MG, TABLET, ORAL, LUPIN PHARMACEU, 500 ea. BOTTLE Active [id number] 4 2023 30 Pharmac y Data Transac tion Service Facilit y SIMVASTATIN (simvastati n), 40 MG, TABLET, ORAL, LUPIN PHARMACEU, 1000 ea. BOTTLE Active [id number] 2023 30 Pharmac y Data Transac tion Service Facilit y Allergies, Adverse Reactions, Alerts Combined list of allergies from Department of Defense and Veterans Affairs facilities. It does not include entries that were removed or entered in error. Substance Category Reaction Severity Reaction type Status Date Reported Comments Source ampicillin-s ulbactam Propensity to adverse reactions to drug Unknown Active 5 Unknown Organizati on AMPICILLIN-S ULBACTAM (AMPICILLIN SODIUM/SULBA CTAM NA) Drug allergy (disorder) Unknown active [address] [place] [address]) BACTRIM (SULFAMETHOX AZOLE/TRIMET HOPRIM) Drug allergy (disorder) Unknown active [address] [place] [address] Danial [facility]) PENICILLINS Drug allergy (disorder) Unknown active [address] [place] [address]) penicillins Propensity to adverse reactions to drug Unknown Active 4 Unknown Organizati on sulfamethoxa zole-trimeth oprim Propensity to adverse reactions to drug Unknown Active 5 Unknown Organizati on Immunizations Combined list of available immunizations from the Department of Defense and Veterans Affairs facilities. Immunization Series Date Given Administered By Site Reaction Lot Number CVX Code Drug Chainstitch Binder Status Comments Source Influenza, injectable, MDCK, preservative free, quadrivalent 2020 LOPEZ HANNA () Not Given Influenza , injectabl e, MDCK, preservat latosha free, quadrival [facility] DoD influenza virus vaccine, inactivated 2019 88 Seqirus complet ed influenza virus vaccine, inactivat ed 07/19/20 Given Ambulat ory Pharmac y Influenza, injectable, MDCK, preservative free, quadrivalent 2019 LOPEZ HANNA () Not Given Influenza , injectabl e, MDCK, preservat latosha free, quadrival ent DoD zoster vaccine, inactivated 2019 zzRig Arm [id number] GlaxoSmithKli ne complet ed zoster vaccine, inactivat ed 02/14/20 Given Ambulat ory Pharmac y zoster vaccine recombinant 1 2019 Unknown, Provider [id number] 187 SmithKline (SKB) complet ed zoster vaccine recombina nt DoD tetanus, diphtheria, acellular pertu is 2019 zzL t Arm [id number] GlaxoSmithKli ne complet ed tetanus, diphtheri a, acellular pertussis 12/05/19 Given Ambulat ory Pharmac y zoster vaccine, inactivated 2019 zzRig Arm [id number] GlaxoSmithKli ne complet ed zoster vaccine, inactivat ed 12/05/19 Given Ambulat ory Pharmac y tetanus toxoid, reduced diphtheria toxoid, and acellular pertu is vaccine, adsorbed 1 2019 Unknown, Provider [id number] SmithKline (SKB) complet ed tetanus toxoid, reduced diphtheri a toxoid, and acellular pertussis vaccine, adsorbed DoD zoster vaccine recombinant 1 2019 Unknown, Provider [id number] SmithKline (SKB) complet ed zoster vaccine recombina nt DoD influenza virus vaccine, unspecified 2018 TRANSCR IBED 88 complet ed influenza virus vaccine, unspecifi ed 07/05/19 Given Ambulat ory Pharmac y influenza virus vaccine, unspecified formulation 1 2018 Unknown, Provider 88 Transcribed (TRS) complet ed influenza virus vaccine, unspecifi ed formulati on DoD influenza, injectable, quadrivalent- pf 2016 zzL t Arm [id number] GlaxoSmithKli ne complet ed influenza , injectabl e, quadrival ent-pf 06/22/17 Given Ambulat ory Pharmac y Influenza, injectable, quadrivalent, preservative free 1 2016 Unknown, Provider [id number] 150 Smithine (SKB) complet ed Influenza , injectabl e, quadrival ent, preservat latosha free DoD zoster vaccine live 2016 zzRig Arm [id number] Merck & Company Inc complet ed zoster vaccine live 10/24/16 Given Ambulat ory Pharmac y zoster vaccine, live 1 2016 Unknown, Provider [id number] Merck (MSD) complet ed zoster vaccine, live DoD influenza, seasonal, injectable-pf 2015 zzLef t Arm [id number] Seqirus complet ed influenza , seasonal, injectabl e-pf 06/30/16 Given Ambulat ory Pharmac y Influenza, seasonal, injectable, preservative free 1 2015 Unknown, Provider [id number] Seqirus (SEQ) complet ed Influenza , seasonal, injectabl e, preservat latosha free DoD influenza, seasonal, injectable 2011 141 complet ed influenza , seasonal, injectabl e 06/24/12 Given Ambulat ory Pharmac y Influenza, seasonal, injectable 1 2011 Unknown, Provider 141 (MVX) complet ed Influenza , seasonal, injectabl e DoD influenza, seasonal, injectable-pf 2010 TRANSCR IBED 140 Novartis Pharmaceutica ls complet ed influenza , seasonal, injectabl e-pf 06/28/11 Given Ambulat ory Pharmac y influenza, seasonal, injectable 2010 141 Novartis Pharmaceutica ls complet ed influenza , seasonal, injectabl e 06/28/11 Given Ambulat ory Pharmac y Influenza, seasonal, injectable 1 2010 Unknown, Provider 141 Novartis Pharmaceutica l Ayala. (NOV) complet ed Influenza , seasonal, injectabl e DoD influenza virus vaccine,split 2009 [facility] [id number] 15 CSL Behring complet ed influenza virus vaccine,s plit 07/02/10 Given Ambulat ory Pharmac y influenza virus vaccine, split virus (incl. purified surface antigen)-reti red CODE 1 2009 Unknown, Provider [id number] 15 CS[employer]ative Spinal Technologies, Inc. (CSL) complet ed influenza virus vaccine, split virus (incl. purified surface antigen)- retired CODE DoD influenza virus vaccine,split 2008 [facility] Arm [id number] 15 sanofi pasteur complet ed influenza virus vaccine,s plit 07/25/09 Given Ambulat ory Pharmac y influenza virus vaccine, split virus (incl. purified surface antigen)-reti red CODE 1 2008 Unknown, Provider [id number] 15 Sanofi Pasteur ([facility]) complet ed influenza virus vaccine, split virus (incl. purified surface antigen)- retired CODE DoD Encounters Combined list of: 1) Encounters from Department of Veterans Affairs facilities going backup to the last 18 months, not all VA inpatient encounters are included; 2) Encounters from the Department of Defense facilities going backup to 280 months. Location Location Details Encounter Type Encounter Number Reason For Visit Attending Provider ADM Date DC Date Status Disposition Source [address] [place] [address] Danial [facility] Non-GME FHI1) TELE CONSULT [id number] pt states she left message on tcon line on thursday ELSI LUZ 02/[address] [place] [address] Danial [facility])(F amily Practic e Non-GME FHI1) [address] [place] [address] Danial B [facility] Non-GME FHI2) OUTPATIENT [id number] uti SELENE HART 07/23 Released w/o Limitations [address] [place] [address] Danial B [facility])(F amily Practic e Non-GME FHI2) [address] [place] [address] Danial B [facility]) TELE CONSULT [id number] MARGARET LOYA 09/[address] [place] [address] Danial B [facility])(F amily Practic e Non-GME FHI1) [address] [place] [address] Danial B [facility] [place] Non-GME FHI1) OUTPATIENT [id number] y/o fe new pt apt with hx of Raynaud s--labs ordered TAMRA LUIS 09/23 Released w/o Limitations [address] [place] [address] Danial B [facility])(F amily Practic e Non-GME FHI1) [address] [place] [address] Danial B [facility] Non-GME FHI1) TELE CONSULT [id number] needs info-13 27-MERLINE Salinas 10/[address] [place] [address] Danial B [facility])(F amily Practic e Non-GME FHI1) [address] [place] [address] Danial [facility])([facility] Non-GME FHI1) OUTPATIENT [id number] annual pap smear TAMRA LUIS 12/09 Released w/o Limitations [address] [place] [address] Danial [facility])(F amily Practic e Non-GME FHI1) [address] [place] [address])(Car diologyPr ocedure Schedules ) OUTPATIENT [id number] PALPITA TIJAIME JOSH MALIK 12/26 Released w/o Limitations [address] [place] [address])(C ardiolo gyProce dure Schedul es) [address] [place] [address])([facility] Non-GME FHI1) OUTPATIENT [id number] right knee ABEL MAYA 05/03 Released w/o Limitations [address] [place] [address] Danial [facility])(F amily Practic e Non-GME FHI1) [address] [place] [address])([facility] Non-GME FHI1) OUTPATIENT [id number] knee pain did not want an acute [phone] TRAM GONZALEZ 02/06 Released w/o Limitations [address] [place] [address] Danial [facility])(F amily Practic e Non-GME FHI1) [address] [place] [address] Danial [facility])([facility] Non-GME FHI1) OUTPATIENT [id number] Possibl e UTI - Patient sent to lab - TRAM Goff 06/22 Released w/o Limitations [address] [place] [address] Danial [facility])(F amily Practic e Non-GME FHI1) [address] [place] [address] Danial [facility])([facility] Team 3) OUTPATIENT [id number] f/u eval for bloodwo rk/med refill DELORIS MAST 04/09 Released w/o Limitations [address] [place] [address] Danial [facility])(Isaac fuentes [facility] Team 3) [address] [place] [address] Danial [facility])([facility] Team 4) TELE CONSULT [id number] Referra l SHERI Vazquez 06/[address] [place] [address] Danial [facility])([facility] Team 4) [address] [place] [address])([facility] Team 4) TELE CONSULT [id number] call back/bi gham HONEY BARBOSA Musa 06/[address] [place] [address])([facility] Team 4) [address] [place] [address])([facility] Team 3) TELE CONSULT [id number] call back lab results HONEY BARBOSA Musa 06/[address] [place] [address])([facility] Team 3) [address] [place] [address])([facility] Team 3) TELE CONSULT [id number] Gonzalez/r eferral needed CHUCHO MUSTAFA 07/[address] [place] [address])([facility] Team 3) [address] [place] [address])([facility] Team 3) TELE CONSULT [id number] Gonzalez/l ab request DAYANA MONTIEL 10/[address] [place] [address])([facility] Team 3) [address] [place] [address])([facility] Team 3) TELE CONSULT [id number] audio note/ lab review TRAM GONZALEZ E 11/[address] [place] [address])([facility] Team 3) [address] [place] [address])([facility] Team 3) OUTPATIENT [id number] f/u medicat ion and labwork [phone] TRAM GONZALEZ E 11/05 Released w/o Limitations [address] [place] [address])([facility] Team 3) [address] [place] [address] Danial [facility])([facility] Team 3) OUTPATIENT [id number] physica l - [phone] TRAM GONZALEZ E 11/20 Released w/o Limitations [address] [place] [address])([facility] Team 3) [address] [place] [address] Danial [facility])([facility] Team 3) TELE CONSULT [id number] audio note/ rad review TRAM GONZALEZ E 11/[address] [place] [address])([facility] Team 3) [address] [place] [address] Danial [employer] [facility] Team 3) TELE CONSULT [id number] PCM - Gonzalez Patient had an ultraso und and has not heard the results DAYANA MONTIEL 12/[address] [place] [address] Danial [employer] [facility] Team 3) [address] [place] [address] Danial [employer] [facility] [place] Team 3) TELE CONSULT [id number] mammogr am results MUSTAFACHUCHOFLORIN 01/[address] [place] [address] Danial [employer] ([facility] Team 3) [address] [place] [address] [place]ial [employer] [facility] [place] Fam Res [place]m [place]) OUTPATIENT [id number] fadumo hall copy AREN CARBONE 01/21 Released w/o Limitations [address] [place] [address] Danial [employer] ([facility])([facility] Fam Res [place]m [place]) [address] [place] [address] [place]ial [employer] [facility] Fam Res Tm [place]) TELE CONSULT [id number] [facility] k C-scope [id number] -ZORAN Gale 01/[address] [place] [address] [place] [employer] [facility] Fam Res [place]m [place]) [address] [place] [address] [place] [employer] [facility] Team 3) TELE CONSULT [id number] Rx refill- LENY Lock 03/[address] [place] [address] [place] [employer] [facility] Team 3) [address] [place] [address] [place] [employer] [facility] Team 3) OUTPATIENT [id number] possibl e UTI TRAM GONZALEZ 04/29 Released w/o Limitations [address] [place] [address] [place] [employer] ([facility] Team 3) [address] [place] [address] [place] [employer] [facility] [place] Team 3) TELE CONSULT [id number] Lab Request - SHADY Cardenas 05/[address] [place] [address] [place] [employer] ([facility] Team 3) [address] [place] [address] [place] [employer] [facility] [place] Team 3) OUTPATIENT [id number] f/u blood work - [phone] DOMINIC MUNSON 05/20 Released w/o Limitations [facility] Danial [employer] ([facility])([facility] Team 3) [address] [place] [address] Danial [employer] [facility] [place] [facility])(Jose Francisco matology) OUTPATIENT [id number] DANIAL Carmichael 05/27 Released w/o Limitations [facility] Danial [employer] ([facility])(D ermatol ogy) [address] [place] [address] Danial [facility] [facility] Team 3) OUTPATIENT [id number] possibl e UTI MAXIMILIANO MADISON 08/16 Released w/o Limitations [address] [place] [address] Danial [employer] [facility] Team 3) [address] [place] [address] Danial [employer] [facility] Team 3) TELE CONSULT [id number] Patient request ing f/u appt for Hyperli pidemia and f/u labs CHUCHO MUSTAFA 11/[address] [place] [address] Danial [employer] [facility] Team 3) [address] [place] [address] Danial [facility] [facility] Team 3) OUTPATIENT [id number] f/u Hyperli pidemia GALLO CARRION 11/11 Released w/o Limitations [address] [place] [address] Danial [employer] [facility] Team 3) [address] [place] [address] Danial [facility] [facility] Team 3) OUTPATIENT [id number] Urinary pressur e, mild burning , abdomin al crampin g GALLO CARRION 12/10 Released w/o Limitations [address] [place] [address] Danial [facility] [facility] Team 3) [address] [place] [address] Danial [facility] [facility] Team 3) TELE CONSULT [id number] having reac to levaqui n-stom pain loraine cad/dkk [id number] CHU GARCIA 12/[address] [place] [address] Danial [facility] [facility] Team 3) [address] [place] [address] Danial [facility] [facility] Team 3) TELE CONSULT [id number] T con for referra l oncolog ist Dr Madison ph [phone] URIAH TONG 03/[address] [place] [address] Danial [facility])([facility] Team 3) [address] [place] [address])(War rior Op Med Cln Tm A Ad) TELE CONSULT [id number] Oncolog y referra CHU Gutierrez R 06/[address] [place] [address])(W arrior Op Med Cln Tm A Ad) [address] [place] [address])([facility] Team 3) TELE CONSULT [id number] referra kristen Shah y cad tlCHU Elaine R 09/[address] [place] [address] Adnial [facility])([facility] Team 3) [address] [place] [address] Danial [facility])([facility] Team 3) TELE CONSULT [id number] STAT Referra kristen Shah y cad tlt REBEL THOMAS 10/15 Referred for Appointment [address] [place] [address])([facility] Team 3) [address] [place] [address])([facility] Team 3) TELE CONSULT [id number] Tcon for appt on a Thu PM Dr Pablo mendez ph [phone] cad dmCHU Milan R 11/[address] [place] [address] Danial [facility])([facility] Team 3) [address] [place] [address])([facility] Team 3) TELE CONSULT [id number] Notes Entered by: REBEL THOMAS 02 Dec 2011 1435 ------- ------- ------- ------- -- Per patient , in need of annual lab work for appt on Dec 07. REBEL THOMAS 12/01 Referred for Appointment [address] [place] [address])([facility] Team 3) [address] [place] [address])([facility] Team 3) TELE CONSULT [id number] Notes Entered by: FREDERIC RANDALL 10 Dec 2011 1223 ------- ------- ------- ------- -- F/u on labs FREDERIC RANDALL 12/[address] [place] [address])([facility] Team 3) [address] [place] [address])([facility] Team 3) OUTPATIENT [id number] annual physicFREDERIC Mcfarland 12/15 Released w/o Limitations [address] [place] [address])([facility] Team 3) [address] [place] [address])([facility] Team 3) TELE CONSULT [id number] Notes Entered by: ME JAMES BERGERON 18 Dec 2011 1323 ------- ------- ------- ------- -- Flory /Katarzyna 4076 cardio office/ called jorge luis peterson from CHU GARCIA 12/[address] [place] [address])([facility] Team 3) [address] [place] [address])([facility] Team 3) TELE CONSULT [id number] Notes Entered by: FREDERIC RANDALL 18 Dec 2011 1622 ------- ------- ------- ------- -- Needs osteope fallon treatme nt CHU GARCIA 12/[address] [place] [address])([facility] Team 3) [address] [place] [address])([facility] Team 3) TELE CONSULT [id number] Notes Entered by: MARICRUZ RANDALL 13 Feb 2012 1232 ------- ------- ------- ------- -- Med office referCHU Robledo 02/[address] [place] [address])([facility] Team 3) [address] [place] [address])([facility] Team 3) TELE CONSULT [id number] Notes Entered by: Sunshine MCHUGH 19 Feb 2012 0858 ------- ------- ------- ------- -- Has Cardiac issues from referra peterson [phone] URIAH TONG 02/[address] [place] [address])([facility] Team 3) [address] [place] [address])(Jack rior Op Med Cln Tm A Ad) TELE CONSULT [id number] Notes Entered by: JAZMYN ZUNIGA 04 Mar 2012 1531 ------- ------- ------- ------- -- Network results - Cardiol walter 03/03/12 FREDERIC RANDALL 03/[address] [place] [address])(W arrior Op Med Cln Tm A Ad) [address] [place] [address])([facility] Team 3) TELE CONSULT [id number] Notes Entered by: MACK WATSON 08 Mar 2012 0950 ------- ------- ------- ------- -- Referra kristen Jennings jose francisco cad tlt CHU GARCIA 03/[address] [place] [address])([facility] Team 3) [address] [place] [address])([facility] Team 3) TELE CONSULT [id number] Notes Entered by: MACK AWTSON 05 May 2012 0859 ------- ------- ------- ------- -- Med refill, dosage increas e Dick jose francisco cad CHU Potter 05/[address] [place] [address])([facility] Team 3) [address] [place] [address])([facility] Team 3) TELE CONSULT [id number] Notes Entered by: CHU GACRIA 04 Jun 2012 0841 ------- ------- ------- ------- -- Medicat ion dosage change CHU GARCIA 06/[address] [place] [address])([facility] Team 3) [address] [place] [address])(Fam sonia Med Tm B Non-AD BCC) TELE CONSULT [id number] Notes Entered by: MARIA VICTORIA SCHAFFER 20 Jul 2012 1208 ------- ------- ------- ------- -- Network Results -Parveen mckeon 01/06/12 FREDERIC RANDALL 07/[address] [place] [address])(F amily Med Tm B Non-AD BCC) [address] [place] [address])([facility] Cl[facility] Tm A Ad) OUTPATIENT [id number] dimplin g in left breast [id number] MICKY SAMANO 11/03 Released w/o Limitations [address] [place] [address])([facility] Med Cln Tm A Ad) [address] [place] [address])([facility] Cl[facility] Tm A Ad) TELE CONSULT [id number] Notes Entered by: Sunshine MCHUGH 20 Jan 2013 0926 ------- ------- ------- ------- -- Request ing yearly lab work blood and urine [id number] WINSTON Valencia I 01/[address] [place] [address])([facility] ar[facility] Op Med Cln Tm A Ad) [address] [place] [address])([facility] Cl[facility] Tm A Ad) OUTPATIENT [id number] f/u on lipitor [id number] MICKY SAMANO 01/26 Released w/o Limitations [address] [place] [address])([facility] ar[facility] Op Med Cln Tm A Ad) [address] [place] [address])([facility] Cln Tm A Ad) TELE CONSULT [id number] Notes Entered by: JUAN SAMANO 16 Feb 2013 1126 ------- ------- ------- ------- -- WINSTON Langley I 02/[address] [place] [address])(W arrior Op Med Cln Tm A Ad) [address] [place] [address])([facility] Med Cln Tm A Ad) TELE CONSULT [id number] Notes Entered by: STACEY ZENG 17 Feb 2013 0740 ------- ------- ------- ------- -- Blood blister s in vaginal area - Ray - SHERI DOWNING Lala 02/[address] [place] [address] Group [facility])(W arrior Op Med Cln Tm A Ad) [address] [place] [address] Group [facility])(War rior Op Med Cln Tm A Ad) OUTPATIENT [id number] VAGINAL -RASH/B CHANTAL- REFERRA L TO MUSEUM PREPARATOR PLACED MICKY SAMANO 02/17 Released w/o Limitations [address] [place] [address] Group [facility])(W arrior Op Med Cln Tm A Ad) [address] [place] [address])([facility] Op Med Cln Tm A Ad) TELE CONSULT [id number] Notes Entered by: STACEY ZENG 28 Feb 2013 1407 ------- ------- ------- ------- -- Medicat ion renewal /questi on - Ray - REBEL THOMAS 02/[address] [place] [address])(W ar[facility] Op Med Cln Tm A Ad) [address] [place] [address])([facility] Med Cln Tm A Ad) TELE CONSULT [id number] Notes Entered by: JUAN SAMANO 01 Mar 2013 0713 ------- ------- ------- ------- -- JOHANNA Green 03/[address] [place] [address] Group [facility])(W arrior Op Med Cln Tm A Ad) [address] [place] [address])(War rior Op Med Cln Tm A Ad) TELE CONSULT [id number] Notes Entered by: Sunshine MCHUGH 02 Mar 2013 0740 ------- ------- ------- ------- -- Lab results /// Luciano Samano/ / JOHANNA LAWTON 03/[address] [place] [address])(W arrior Op Med Cln Tm A Ad) [address] [place] [address] Danial [facility])([employer]) OUTPATIENT [id number] Vaginal GERRI Coyle 03/02 Released w/o Limitations [address] [place] [address] Danial [facility])(G ynecolo gy) [address] [place] [address])(War rior Op Med Cln Tm A Ad) TELE CONSULT [id number] Notes Entered by: Sunshine MCHUGH 09 Mar 2013 1336 ------- ------- ------- ------- -- Kacyra kristen samuel /Dr. Samano/ / w JOHANNA LAWTON 03/[address] [place] [address])(W arrior Op Med Cln Tm A Ad) [address] [place] [address] Danial [facility])(War rior Op Med Cln Tm A Ad) TELE CONSULT [id number] Notes Entered by: ARPAN ALEGRIA 23 Mar 2013 0859 ------- ------- ------- ------- -- Network Results - UROLOGY 03/21/13 MICKY SAMANO 03/[address] [place] [address] Danial [facility])(W arrior Op Med Cln Tm A Ad) [address] [place] [address])(War ri[facility] Op Med Cln Tm A Ad) TELE CONSULT [id number] Notes Entered by: ARPAN ALEGRIA 06 Apr 2013 0914 ------- ------- ------- ------- -- Network Results - UROLOGY 03/30/13 MICKY SAMANO 04/[address] [place] [address])(W arrior Op Med Cln Tm A Ad) [address] [place] [address])([facility] Op Med Cln Tm A Ad) TELE CONSULT [id number] Notes Entered by: MACK WATSON 06 Apr 2013 1415 ------- ------- ------- ------- -- Referra kristen Samano DEJA VELA 04/[address] [place] [address])(W arrior Op Med Cln Tm A Ad) [address] [place] [address])([facility] Op Med Cln Tm A Ad) TELE CONSULT [id number] Notes Entered by: SIDNEY MONTIEL 12 Apr 2013 0957 ------- ------- ------- ------- -- Referra peterson for cardiol ogy and order for CT scan DEJA VELA 04/12 Referred for Appointment [address] [place] [address])(W ar[facility] Op Med Cln Tm A Ad) [address] [place] [address])(War ri[facility] Op Med Cln Tm A Ad) TELE CONSULT [id number] Notes Entered by: ROBERT HORNER 18 May 2013 1552 ------- ------- ------- ------- -- CT results /Ray / today MICKY SAMANO 05/[address] [place] [address])(W ar[facility] Op Med Cln Tm A Ad) [address] [place] [address])([facility] Op Med Cln Tm A Ad) TELE CONSULT [id number] Notes Entered by: MACK WATSON 07 Jun 2013 1114 ------- ------- ------- ------- -- CAT scan results Ray until 1600 MICKY SAMANO 06/[address] [place] [address])(W arrior Op Med Cln Tm A Ad) [address] [place] [address])([facility] Op Med Cln Tm A Ad) TELE CONSULT [id number] Notes Entered by: RAVINDER PASTOR 06 Jul 2013 1437 ------- ------- ------- ------- -- Network Results -UROLOG Y 3 MICKY SAMANO 07/[address] [place] [address])(W arrior Op Med Cln Tm A Ad) [address] [place] [address])(Fam sonia Med Tm B Non-AD BCC) TELE CONSULT [id number] Notes Entered by: MUKUND GARCIA 04 Aug 2013 1126 ------- ------- ------- ------- -- Network Results -ONCOLO GY 04/14/13 MICKY SAMANO 08/[address] [place] [address])(F amily Med Tm B Non-AD BCC) [address] [place] [address])([facility] Op Med Cln Tm A Ad) TELE CONSULT [id number] Notes Entered by: FADUMO MIRANDA 05 Oct 2013 0920 ------- ------- ------- ------- -- PT ana jiang/ sima/61 [phone] MICKY SAMANO 10/[address] [place] [address])(W ar[facility] Op Med Cln Tm A Ad) [address] [place] [address])(War [facility] Op Med Cln Tm A Ad) TELE CONSULT [id number] Notes Entered by: ROBERT HORNER 20 Oct 2013 0736 ------- ------- ------- ------- -- SX - Dizzy, nausea/ Ray/ till 1600* MARKIE TORRES 10/[address] [place] [address])(W arrior Op Med Cln Tm A Ad) [address] [place] [address])(War rior Op Med Cln Tm A Ad) OUTPATIENT [id number] f/u dizzine ss: hx:MICKY Cortez 10/21 Released w/o Limitations [address] [place] [address] Group [facility])(W arrior Op Med Cln Tm A Ad) [address] [place] [address])(War rior Op Med Cln Tm A Ad) TELE CONSULT [id number] Notes Entered by: JUAN SAMANO 01 Nov 2013 0700 ------- ------- ------- ------- -- CT results MICKY SAMANO 11/[address] [place] [address] Group [facility])(W arrior Op Med Cln Tm A Ad) [address] [place] [address])( rior Op Med Cln Tm A Ad) TELE CONSULT [id number] Notes Entered by: MACK WATSON 15 Nov 2013 1025 ------- ------- ------- ------- -- Referra l for mammogr am Ray FADUMO SANDOVAL 11/15 Referred for Appointment [facility] Medical Group [facility])(W arrior Op Med Cln Tm A Ad) [address] [place] [address])( rior Op Med Cln Tm A Ad) TELE CONSULT [id number] Notes Entered by: Jacinda MCHUGH 28 Feb 2014 0850 ------- ------- ------- ------- -- Needs lab order/[place] [id number] [phone] MERLINE TENA 02/28 Referred for Appointment [facility] Medical Group [facility])(W arrior Op Med Cln Tm A Ad) [address] [place] [address])( rior Op Med Cln Tm A Ad) TELE CONSULT [id number] Notes Entered by: ME JAMES SOTO 28 Feb 2014 0909 ------- ------- ------- ------- -- Referra l TAYLOR Bethea 02/[address] [place] [address])(W arrior Op Med Cln Tm A Ad) [address] [place] [address])([facility] Op Med Cln Tm A Ad) TELE CONSULT [id number] Notes Entered by: JUAN SAMANO 08 Mar 2014 1332 ------- ------- ------- ------- -- Hyperli pidemia MICKY SAMANO 03/[address] [place] [address])(W ar[facility] Op Med Cln Tm A Ad) [address] [place] [address])(War ri[facility] Op Med Cln Tm A Ad) OUTPATIENT [id number] labs [phone] MICKY SAMANO 03/14 Released w/o Limitations [address] [place] [address])(W ar[facility] Op Med Cln Tm A Ad) [address] [place] [address])([facility] Op Med Cln Tm A Ad) TELE CONSULT [id number] Notes Entered by: SUYAPA FLANAGAN 23 Mar 2014 1030 ------- ------- ------- ------- -- Lab results / Ray/ [phone] MICKY SAMANO 03/[address] [place] [address])(W arrior Op Med Cln Tm A Ad) [address] [place] [address])([employer]) OUTPATIENT [id number] banner - [id number] NICK COTA 04/19 Released w/o Limitations [address] [place] [address])(G ynecolo gy) [address] [place] [address])(War rior Op Med Cln Tm A Ad) TELE CONSULT [id number] Notes Entered by: NIEVES VENTURA 24 Apr 2014 1048 ------- ------- ------- ------- -- Oncolog y JANNETTE Mullins 04/[address] [place] [address])(W arrior Op Med Cln Tm A Ad) [address] [place] [address])(War rior Op Med Cln Tm A Ad) TELE CONSULT [id number] Notes Entered by: Sunshine MCHUGH 18 May 201422 ------- ------- ------- ------- -- Request ing cat scan on left lung Ray DOMINIC HERBERT 05/[address] [place] [address])(W ar[facility] Op Med Cln Tm A Ad) [address] [place] [address])(War rior Op Med Cln Tm A Ad) TELE CONSULT [id number] Notes Entered by: JUAN SAMANO 24 May 2014 1713 ------- ------- ------- ------- -- Radiolo gy studies MICKY SAMANO 05/[address] [place] [address])(W arrior Op Med Cln Tm A Ad) [address] [place] [address])(War rior Op Med Cln Tm A Ad) TELE CONSULT [id number] Notes Entered by: GALILEO ZHONG 30 May 2014 1631 ------- ------- ------- ------- -- Samano/ Radiolo gy Results request NICK Kearns 05/[address] [place] [address])(W arrior Op Med Cln Tm A Ad) [address] [place] [address])(War rior Op Med Cln Tm A Ad) OUTPATIENT [id number] cough, sinus drainag e, headach e, sore throat [id number] MICKY SAMANO 09/18 Released w/o Limitations [address] [place] [address])(W arrior Op Med Cln Tm A Ad) [address] [place] [address])(War rior Op Med Cln Tm A Ad) TELE CONSULT [id number] Notes Entered by: MACK WATSON 20 Nov 2014 0910 ------- ------- ------- ------- -- Referra kristen Liverga n ASK FOR EXT 1860 DOMINIC HERBERT 11/[address] [place] [address] Group [facility])(W arrior Op Med Cln Tm A Ad) [address] [place] [address])(War rior Op Med Cln Tm A Ad) TELE CONSULT [id number] Notes Entered by: ARLENE PEREA 21 Nov 2014 1041 ------- ------- ------- ------- -- Cardiol ogy referra peterson renewal request ed by Pt CALIXTO PEREA 11/21 Referred for Appointment [address] [place] [address] Group [facility])(W arrior Op Med Cln Tm A Ad) [address] [place] [address])(War rior Op Med Cln Tm A Ad) TELE CONSULT [id number] Notes Entered by: YUE SHETTY 14 Mar 2015 1503 ------- ------- ------- ------- -- Oncolog y Coreen peterson Renewal JOANA SHETTY 03/14 Referred for Appointment [address] [place] [address] Group [facility])(W arrior Op Med Cln Tm A Ad) [address] [place] [address])([employer]) OUTPATIENT [id number] [facility] GERRI JENKINS 04/11 Released w/o Limitations [address] [place] [address])(G ynecolo gy) [address] [place] [address] Danial [facility])([employer] ecology) TELE CONSULT [id number] Notes Entered by: ORTIZ JENKINS 18 Apr 2015 1650 ------- ------- ------- ------- -- results CAMDEN EL 04/[address] [place] [address])(G ynecolo gy) [address] [place] [address])(Fam sonia Med Tm B Non-AD BCC) TELE CONSULT [id number] Notes Entered by: JAZMYN ZUNIGA 20 Apr 2015 0815 ------- ------- ------- ------- -- Network Results - CARDIOL OGY- 02/14/15 IHSAN FINLEY 04/[address] [place] [address] Danial [facility])(F amily Med Tm B Non-AD BCC) [address] [place] [address] Danial [facility])(War rior Op Med Cln Tm A Ad) OUTPATIENT [id number] discuss medicat ion for anxiety [id number] IHSAN FINLEY 04/27 Released w/o Limitations [address] [place] [address] Danial [facility])(W arrior Op Med Cln Tm A Ad) [address] [place] [address] Danial [facility])([facility]) OUTPATIENT [id number] Notes Entered by: BIRGIT ALVARADO 30 Apr 2015 1330 ------- ------- ------- ------- -- anxiety BEN ALVARADO 04/30 Released w/o Limitations [address] [place] [address])([facility]) [address] [place] [address])([facility]) TELE CONSULT [id number] Notes Entered by: Pankaj NIEVES 11 May 2015 0948 ------- ------- ------- ------- -- 7-10 day call. MESSI NIEVES 05/[address] [place] [address] Danial [facility])([facility]) [address] [place] [address] Danial [facility])([facility]) OUTPATIENT [id number] F/U anxiety /depres ana maría BEN ALVARADO 05/30 Released w/o Limitations [address] [place] [address])([facility]) [address] [place] [address] Danial [facility])([facility]) TELE CONSULT [id number] Notes Entered by: Pankaj NIEVES 30 May 2015 1414 ------- ------- ------- ------- -- 4 wk. call MESSI NIEVES 05/[address] [place] [address] Group [facility])([facility]) [address] [place] [address])([facility]) TELE CONSULT [id number] Notes Entered by: Pankaj NIEVES 03 Jul 2015 1511 ------- ------- ------- ------- -- 8 wk. call MESSI NIEVES 07/[address] [place] [address])([facility]) [address] [place] [address])([facility] Internal [facility]) TELE CONSULT [id number] Notes Entered by: LENA PAYNE 01 Oct 2015 1131 ------- ------- ------- ------- -- Med renewal /Eugeni o/ TREY STOCK 10/[address] [place] [address])( cott Interna l Medicin e Tm) [address] [place] [address])([facility] ) TELE CONSULT [id number] Notes Entered by: Mckay MIN 03 Mar 2016 0832 ------- ------- ------- ------- -- Request on base mammogr am / Ariel / ext 1860 GUME CAREY 03/[address] [place] [address])( cott Interna l Medicin e Tm) [address] [place] [address])([facility] ) TELE CONSULT [id number] Notes Entered by: LENA PAYNE 26 Mar 2016 0959 ------- ------- ------- ------- -- Referra l Renewal Request (appt 24 April)/E ugenio/ ext. 1860 [facility] MARIAMA SANCHEZ Lala 03/26 Immediate Referral [address] [place] [address])(S cott Interna l Medicin e Tm) [address] [place] [address])([facility] Medicine ) TELE CONSULT [id number] Notes Entered by: GIST,MACIE CATARINA D 08 Apr 2016 1100 ------- ------- ------- ------- -- Network Results -RADIOL OGY 04/03/16 SCREEN MAMMO TREY ORTIZ 04/[address] [place] [address])(S cott Interna l Medicin e Tm) [address] [place] [address])([facility] ) TELE CONSULT [id number] Notes Entered by: RONALDO CHING 14 Oct 2016 0817 ------- ------- ------- ------- -- Request for Lab Order - Appt Sep / Guillermo Dobson / Bulmaro / - sgj SARATH BARRIOS 10/[address] [place] [address])(S cott Interna l Medicin e Tm) [address] [place] [address])([facility] ) OUTPATIENT [id number] F/U for medicat ions / lab results [id number] PATRICIA JEAN BAPTISTE V 10/23 Released w/o Limitations [address] [place] [address])(S cott Interna l Medicin e Tm) [address] [place] [address])([facility] ) TELE CONSULT [id number] Notes Entered by: LENA PAYNE 29 Oct 2016 1238 ------- ------- ------- ------- -- BRCA Testing /Ney cuevas/ SARATH BARRIOS 10/[address] [place] [address])(S cott Interna l Medicin e Tm) [address] [place] [address])([facility] ) OUTPATIENT [id number] F/U for lab results [id number] PATRICIA JEAN BAPTISTE V 11/20 Released w/o Limitations [address] [place] [address])(S cott Interna l Medicin e Tm) [address] [place] [address])([facility] ) TELE CONSULT [id number] Notes Entered by: Musa ROSA 25 Nov 2016 0813 ------- ------- ------- ------- -- Script for Left shoulde r pain/ apex physica l therapy SARAHT BARRIOS 11/[address] [place] [address])(S cott Interna l Medicin e Tm) [address] [place] [address])([facility] ) TELE CONSULT [id number] Notes Entered by: MACIE MÉNDEZ 27 Nov 2016 1242 ------- ------- ------- ------- -- Network Results - PHYSICA L THERAPY 11/25/16 PATRICIA CALIX V 11/[address] [place] [address])(S cott Interna l Medicin e Tm) [address] [place] [address])([facility] ) TELE CONSULT [id number] Notes Entered by: PREMA PLEITEZ 26 Dec 2016 1352 ------- ------- ------- ------- -- Network results Physica l Therapy 017 PATRICIA CABRERA V 12/[address] [place] [address])(S cott Interna l Medicin e Tm) [address] [place] [address])([facility] ) TELE CONSULT [id number] Notes Entered by: ANAMIKA MAYEN 31 Dec 2016 1050 ------- ------- ------- ------- -- Coreen aldridge /Ney cuevas/ /SARATH Galaviz 12/31 [facility] Medical Group [facility])(S cott Interna l Medicin e Tm) [address] [place] [address] Group [facility])([facility] ) TELE CONSULT [id number] Notes Entered by: STACEY ZENG 01 Apr 2017 0912 ------- ------- ------- ------- -- Rx renewal - Ariella - - JOSH Pina 04/[address] [place] [address] Group [facility])(S cott Interna l Medicin e Tm) [address] [place] [address] Group [facility])([facility] ) TELE CONSULT [id number] Notes Entered by: LORRAINE CASANOVA 24 Dec 2017 0836 ------- ------- ------- ------- -- Med Renewal Request / Negin/ Geoffrey# [phone] - [facility] SARATH BARRIOS 12/[address] [place] [address] Group [facility])(S cott Interna l Medicin e Tm) [address] [place] [address])([facility] ) OUTPATIENT [id number] Annual physica l DERRICK SOSA 01/08 Released w/o Limitations [facility])(S cott Interna l Medicin e Tm) [address] [place] [address])([facility] ) TELE CONSULT [id number] Notes Entered by: ANAMIKA MAYEN 09 Feb 2018 0904 ------- ------- ------- ------- -- Referra l Renewal /Lab Results /Donell /410.09 16/HALEY Rodriguez 02/09 Referred for Appointment [facility] Medical Group [facility])(S cott Interna l Medicin e Tm) [address] [place] [address])([facility] ) OUTPATIENT [id number] F/U for lab results [id number] DAVONTE BRADLEY 02/11 Released w/o Limitations [address] [place] [address] Group [facility])(S cott Interna l Medicin e Tm) [address] [place] [address])([facility] ) TELE CONSULT [id number] Notes Entered by: DAVONTE BRADLEY 15 Feb 2018 1231 ------- ------- ------- ------- -- Results of the urine test SANDY SNELL 02/15 Referred for Appointment [address] [place] [address] Group [facility])(S cott Interna l Medicin e Tm) [address] [place] [address])([facility] ) TELE CONSULT [id number] Notes Entered by: ANAMIKA MAYEN 02 Mar 2018 0843 ------- ------- ------- ------- -- Lab Results /Donell // HALEY Rodriguez 03/02 Referred for Appointment [address] [place] [address] Group [facility])(S cott Interna l Medicin e Tm) [address] [place] [address])([facility] ) TELE CONSULT [id number] Notes Entered by: STACEY ZENG 20 Dec 2018 0814 ------- ------- ------- ------- -- Rx renewal - Jony - - [facility] SARATH BARRIOS 12/20 Medication Refill Forwarded [address] [place] [address] Group [facility])(S cott Interna l Medicin e Tm) [address] [place] [address])([facility] ) TELE CONSULT [id number] Notes Entered by: SHANEKA OSHEA 01 Dec 2019 1158 ------- ------- ------- ------- -- lab request /jony /[id number] SANDY [place] 11/30 Other Not Elsewhere Classified [facility])(S cott Interna l Medicin e Tm) [facility] Danial [facility])([facility] ) OUTPATIENT [id number] 5 annual physica l [phone] BOB MILLARD 11/30 Released w/o Limitations [address] [place] [address] Group [facility])(S cott Interna l Medicin e Tm) [address] [place] [address] Group [facility] [facility])([facility] ) TELE CONSULT [id number] Notes Entered by: STACEY ZENG 27 Nov 2020 [id number] ------- ------- ------- ------- -- Order labs - Jose - - [facility] SARATH BARRIOS 11/27 Other Not Elsewhere Classified [facility]) [address] [place] [address] Group Danial [facility])([facility] ) OUTPATIENT [id number] [facility] [phone] annual check up MELISSA FRANZ 11/30 Released w/o Limitations [address] [place] [address] Group Danial [facility])([facility] cott Interna l Medicin e Tm) Procedures Combined list of: 1) Procedures from Department of Veterans Affairs facilities going back up to thelast 18 months, not all VA non-surgical procedures are included; 2) All procedures from the Department of Defense facilities. Procedure Procedure Type Code Date Perfomer Comments Sourc e No data available for this section Ambulatory Pharmacy WAIVER SERVICES; NOT OTHERWISE SPECIFIED (NOS) 12/04/19 21 DoD TELE ASSESS & MGT SRV PROV QUAL NONPHYS HLTH CARE PRO TO EST PAT,PARENT,GUARD NOT ORIG REL ASSESS & MGT SRV PROV W/IN PREV 7 DAYS NOR LEAD ASSESS & MGT SRV/PX W/IN NXT 24 HR/SOON APT;5-10 MIN MED DIS 03/02/20 18 DoD TELE ASSESS & MGT SRV PROV QUAL NONPHYS HLTH CARE PRO TO EST PAT,PARENT,GUARD NOT ORIG REL ASSESS & MGT SRV PROV W/IN PREV 7 DAYS NOR LEAD ASSESS & MGT SRV/PX W/IN NXT 24 HR/SOON APT;5-10 MIN MED DIS 02/16/20 18 DoD TELE ASSESS & MGT SRV PROV QUAL NONPHYS HLTH CARE PRO TO EST PAT,PARENT,GUARD NOT ORIG REL ASSESS & MGT SRV PROV W/IN PREV 7 DAYS NOR LEAD ASSESS & MGT SRV/PX W/IN NXT 24 HR/SOON APT;5-10 MIN MED DIS 02/10/20 18 DoD TELE ASSESS & MGT SRV PROV QUAL NONPHYS HLTH CARE PRO TO EST PAT,PARENT,GUARD NOT ORIG REL ASSESS & MGT SRV PROV W/IN PREV 7 DAYS NOR LEAD ASSESS & MGT SRV/PX W/IN NXT 24 HR/SOON APT;5-10 MIN MED DIS 12/25/19 18 DoD TELE ASSESS & MGT SRV PROV QUAL NONPHYS HLTH CARE PRO TO EST PAT,PARENT,GUARD NOT ORIG REL ASSESS & MGT SRV PROV W/IN PREV 7 DAYS NOR LEAD ASSESS & MGT SRV/PX W/IN NXT 24 HR/SOON APT;5-10 MIN MED DIS 04/01/20 17 DoD TELE ASSESS & MGT SRV PROV QUAL NONPHYS HLTH CARE PRO TO EST PAT,PARENT,GUARD NOT ORIG REL ASSESS & MGT SRV PROV W/IN PREV 7 DAYS NOR LEAD ASSESS & MGT SRV/PX W/IN NXT 24 HR/SOON APT;5-10 MIN MED DIS 01/01/20 17 DoD TELE ASSESS & MGT SRV PROV QUAL NONPHYS HLTH CARE PRO TO EST PAT,PARENT,GUARD NOT ORIG REL ASSESS & MGT SRV PROV W/IN PREV 7 DAYS NOR LEAD ASSESS & MGT SRV/PX W/IN NXT 24 HR/SOON APT;5-10 MIN MED DIS 11/25/19 17 DoD TELE ASSESS & MGT SRV PROV QUAL NONPHYS HLTH CARE PRO TO EST PAT,PARENT,GUARD NOT ORIG REL ASSESS & MGT SRV PROV W/IN PREV 7 DAYS NOR LEAD ASSESS & MGT SRV/PX W/IN NXT 24 HR/SOON APT;5-10 MIN MED DIS 10/14/19 17 DoD TELE ASSESS & MGT SRV PROV QUAL NONPHYS HLTH CARE PRO TO EST PAT,PARENT,GUARD NOT ORIG REL ASSESS & MGT SRV PROV W/IN PREV 7 DAYS NOR LEAD ASSESS & MGT SRV/PX W/IN NXT 24 HR/SOON APT;5-10 MIN MED DIS 03/03/20 16 DoD TELEPHONE CALLS BY A REGISTERED NURSE TO A DISEASE MANAGEMENT PROGRAM MEMBER FOR MONITORING PURPOSES; PER MONTH 07/03/20 15 DoD TELEPHONE CALLS BY A REGISTERED NURSE TO A DISEASE MANAGEMENT PROGRAM MEMBER FOR MONITORING PURPOSES; PER MONTH 05/30/20 15 [facility] DISEASE MANAGEMENT PROGRAM; INITIAL ASSESSMENT AND INITIATION OF THE PROGRAM 05/11/20 15 DoD TELE ASSESS & MGT SRV PROV QUAL NONPHYS HLTH CARE PRO TO EST PAT,PARENT,GUARD NOT ORIG REL ASSESS & MGT SRV PROV W/IN PREV 7 DAYS NOR LEAD ASSESS & MGT SRV/PX W/IN NXT 24 HR/SOON APT;5-10 MIN MED DIS 04/18/20 15 DoD PSYCHOTHERAPY, 45 MINUTES WITH PATIENT 04/18/20 15 DoD PSYCHOTHERAPY, 60 MINUTES WITH PATIENT 04/04/20 15 DoD PSYCHIATRIC DIAGNOSTIC EVALUATION 03/28/20 15 DoD TELE ASSESS & MGT SRV PROV QUAL NONPHYS HLTH CARE PRO TO EST PAT,PARENT,GUARD NOT ORIG REL ASSESS & MGT SRV PROV W/IN PREV 7 DAYS NOR LEAD ASSESS & MGT SRV/PX W/IN NXT 24 HR/SOON APT;5-10 MIN MED DIS 03/14/20 15 DoD TELE ASSESS & MGT SRV PROV QUAL NONPHYS HLTH CARE PRO TO EST PAT,PARENT,GUARD NOT ORIG REL ASSESS & MGT SRV PROV W/IN PREV 7 DAYS NOR LEAD ASSESS & MGT SRV/PX W/IN NXT 24 HR/SOON APT;5-10 MIN MED DIS 11/21/19 15 DoD TELE ASSESS & MGT SRV PROV QUAL NONPHYS HLTH CARE PRO TO EST PAT,PARENT,GUARD NOT ORIG REL ASSESS & MGT SRV PROV W/IN PREV 7 DAYS NOR LEAD ASSESS & MGT SRV/PX W/IN NXT 24 HR/SOON APT;5-10 MIN MED DIS 11/20/19 15 DoD TELE ASSESS & MGT SRV PROV QUAL NONPHYS HLTH CARE PRO TO EST PAT,PARENT,GUARD NOT ORIG REL ASSESS & MGT SRV PROV W/IN PREV 7 DAYS NOR LEAD ASSESS & MGT SRV/PX W/IN NXT 24 HR/SOON APT;5-10 MIN MED DIS 05/30/20 14 DoD TELE ASSESS & MGT SRV PROV QUAL NONPHYS HLTH CARE PRO TO EST PAT,PARENT,GUARD NOT ORIG REL ASSESS & MGT SRV PROV W/IN PREV 7 DAYS NOR LEAD ASSESS & MGT SRV/PX W/IN NXT 24 HR/SOON APT;5-10 MIN MED DIS 05/18/20 14 DoD TELE ASSESS & MGT SRV PROV QUAL NONPHYS HLTH CARE PRO TO EST PAT,PARENT,GUARD NOT ORIG REL ASSESS & MGT SRV PROV W/IN PREV 7 DAYS NOR LEAD ASSESS & MGT SRV/PX W/IN NXT 24 HR/SOON APT;5-10 MIN MED DIS 04/24/20 14 DoD TELE ASSESS & MGT SRV PROV QUAL NONPHYS HLTH CARE PRO TO EST PAT,PARENT,GUARD NOT ORIG REL ASSESS & MGT SRV PROV W/IN PREV 7 DAYS NOR LEAD ASSESS & MGT SRV/PX W/IN NXT 24H/SOON APT; 11-20 MIN MED DIS 10/20/19 14 DoD TELE ASSESS & MGT SRV PROV QUAL NONPHYS HLTH CARE PRO TO EST PAT,PARENT,GUARD NOT ORIG REL ASSESS & MGT SRV PROV W/IN PREV 7 DAYS NOR LEAD ASSESS & MGT SRV/PX W/IN NXT 24 HR/SOON APT;5-10 MIN MED DIS 04/06/20 13 DoD TELE ASSESS & MGT SRV PROV QUAL NONPHYS HLTH CARE PRO TO EST PAT,PARENT,GUARD NOT ORIG REL ASSESS & MGT SRV PROV W/IN PREV 7 DAYS NOR LEAD ASSESS & MGT SRV/PX W/IN NXT 24H/SOON APT; 11-20 MIN MED DIS 02/29/20 13 DoD TELE ASSESS & MGT SRV PROV QUAL NONPHYS HLTH CARE PRO TO EST PAT,PARENT,GUARD NOT ORIG REL ASSESS & MGT SRV PROV W/IN PREV 7 DAYS NOR LEAD ASSESS & MGT SRV/PX W/IN NXT 24H/SOON APT; 11-20 MIN MED DIS 02/18/20 13 DoD TELE ASSESS & MGT SRV PROV QUAL NONPHYS HLTH CARE PRO TO EST PAT,PARENT,GUARD NOT ORIG REL ASSESS & MGT SRV PROV W/IN PREV 7 DAYS NOR LEAD ASSESS & MGT SRV/PX W/IN NXT 24 HR/SOON APT;5-10 MIN MED DIS 06/04/20 12 DoD TELE ASSESS & MGT SRV PROV QUAL NONPHYS HLTH CARE PRO TO EST PAT,PARENT,GUARD NOT ORIG REL ASSESS & MGT SRV PROV W/IN PREV 7 DAYS NOR LEAD ASSESS & MGT SRV/PX W/IN NXT 24 HR/SOON APT;5-10 MIN MED DIS 05/05/20 12 DoD TELE ASSESS & MGT SRV PROV QUAL NONPHYS HLTH CARE PRO TO EST PAT,PARENT,GUARD NOT ORIG REL ASSESS & MGT SRV PROV W/IN PREV 7 DAYS NOR LEAD ASSESS & MGT SRV/PX W/IN NXT 24 HR/SOON APT;5-10 MIN MED DIS 03/08/20 12 DoD TELE ASSESS & MGT SRV PROV QUAL NONPHYS HLTH CARE PRO TO EST PAT,PARENT,GUARD NOT ORIG REL ASSESS & MGT SRV PROV W/IN PREV 7 DAYS NOR LEAD ASSESS & MGT SRV/PX W/IN NXT 24 HR/SOON APT;5-10 MIN MED DIS 02/13/20 12 DoD TELE ASSESS & MGT SRV PROV QUAL NONPHYS HLTH CARE PRO TO EST PAT,PARENT,GUARD NOT ORIG REL ASSESS & MGT SRV PROV W/IN PREV 7 DAYS NOR LEAD ASSESS & MGT SRV/PX W/IN NXT 24 HR/SOON APT;5-10 MIN MED DIS 12/18/19 12 DoD TELE ASSESS & MGT SRV PROV QUAL NONPHYS HLTH CARE PRO TO EST PAT,PARENT,GUARD NOT ORIG REL ASSESS & MGT SRV PROV W/IN PREV 7 DAYS NOR LEAD ASSESS & MGT SRV/PX W/IN NXT 24 HR/SOON APT;5-10 MIN MED DIS 12/02/19 12 DoD TELE ASSESS & MGT SRV PROV QUAL NONPHYS HLTH CARE PRO TO EST PAT,PARENT,GUARD NOT ORIG REL ASSESS & MGT SRV PROV W/IN PREV 7 DAYS NOR LEAD ASSESS & MGT SRV/PX W/IN NXT 24 HR/SOON APT;5-10 MIN MED DIS 10/15/19 12 DoD TELE ASSESS & MGT SRV PROV QUAL NONPHYS HLTH CARE PRO TO EST PAT,PARENT,GUARD NOT ORIG REL ASSESS & MGT SRV PROV W/IN PREV 7 DAYS NOR LEAD ASSESS & MGT SRV/PX W/IN NXT 24 HR/SOON APT;5-10 MIN MED DIS 09/24/20 11 DoD TELE ASSESS & MGT SRV PROV QUAL NONPHYS HLTH CARE PRO TO EST PAT,PARENT,GUARD NOT ORIG REL ASSESS & MGT SRV PROV W/IN PREV 7 DAYS NOR LEAD ASSESS & MGT SRV/PX W/IN NXT 24 HR/SOON APT;5-10 MIN MED DIS 06/04/20 11 DoD TELE ASSESS & MGT SRV PROV QUAL NONPHYS HLTH CARE PRO TO EST PAT,PARENT,GUARD NOT ORIG REL ASSESS & MGT SRV PROV W/IN PREV 7 DAYS NOR LEAD ASSESS & MGT SRV/PX W/IN NXT 24 HR/SOON APT;5-10 MIN MED DIS 11/04/19 11 DoD COLORECTAL CANCER SCREENING; COLONOSCOPY ON INDIVIDUAL NOT MEETING CRITERIA FOR HIGH RISK 01/22/20 10 DoD TELE ASSESS & MGT SRV PROV QUAL NONPHYS HLTH CARE PRO TO EST PAT,PARENT,GUARD NOT ORIG REL ASSESS & MGT SRV PROV W/IN PREV 7 DAYS NOR LEAD ASSESS & MGT SRV/PX W/IN NXT 24 HR/SOON APT;5-10 MIN MED DIS 12/25/19 10 DoD DOPPLER ECHOCARDIOGRAPHY, PULSED WAVE AND/OR CONTINUOUS WAVE WITH SPECTRAL DISPLAY (LIST SEPARATELY IN ADDITION TO CODES FOR ECHOCARDIOGRAPHIC IMAGING); COMPLETE 12/26/19 06 [facility] Non-Physician Phone Call To Patient/Provider Brief (5-10min) Non-Physician Phone Call To Patient/Provide r Brief (5-10min) [id number] 03/02/20 18 HALEY FONTAINE DoD Non-Physician Phone Call To Patient/Provider Brief (5-10min) Non-Physician Phone Call To Patient/Provide r Brief (5-10min) [id number] 02/17/[address] [facility]D Non-Physician Phone Call To Patient/Provider Brief (5-10min) Non-Physician Phone Call To Patient/Provide r Brief (5-10min) [id number] 02/10/20 18 HALEY FONTAINE DoD Non-Physician Phone Call To Patient/Provider Brief (5-10min) Non-Physician Phone Call To Patient/Provide r Brief (5-10min) [id number] 12/25/19 18 DERRICK SOSA [facility] Non-Physician Phone Call To Patient/Provider Brief (5-10min) Non-Physician Phone Call To Patient/Provide r Brief (5-10min) [id number] 04/02/20 17 JOSH KNOWLES [facility] Non-Physician Phone Call To Patient/Provider Brief (5-10min) Non-Physician Phone Call To Patient/Provide r Brief (5-10min) [id number] 01/01/20 17 SARATH BARRIOS [facility] Non-Physician Phone Call To Patient/Provider Brief (5-10min) Non-Physician Phone Call To Patient/Provide r Brief (5-10min) [id number] 11/27/19 17 SARATH BARRIOS [facility] Non-Physician Phone Call To Patient/Provider Brief (5-10min) Non-Physician Phone Call To Patient/Provide r Brief (5-10min) [id number] 10/14/19 17 PATRICIA JEAN BAPTISTE V [facility] Non-Physician Phone Call To Patient/Provider Brief (5-10min) Non-Physician Phone Call To Patient/Provide r Brief (5-10min) [id number] 03/06/20 16 GUME CAREY [facility] Telephone calls by a registered nurse to a disease management program member for monitoring purposes; per month 07/03/20 15 MESSI NIEVES [facility] Telephone calls by a registered nurse to a disease management program member for monitoring purposes; per month 05/30/20 15 MESSI NIEVES Disease management program; initial a e ment and initiation of the program 05/11/20 15 MESSI NIEVES Psychiatric Therapy Individual Approximately 45-50 Minutes 04/20/20 15 KHLOE HARGROVE [facility] Non-Physician Phone Call To Patient/Provider Brief (5-10min) Non-Physician Phone Call To Patient/Provide r Brief (5-10min) [id number] 04/19/20 15 CAMDEN EL [facility] Psychiatric Evaluation Psychiatric Evaluation [id number] 04/04/20 15 KHLOE HARGROVE [facility] Non-Physician Phone Call To Patient/Provider Brief (5-10min) Non-Physician Phone Call To Patient/Provide r Brief (5-10min) [id number] 03/14/20 15 JOANA SHETTY [facility] Non-Physician Phone Call To Patient/Provider Brief (5-10min) Non-Physician Phone Call To Patient/Provide r Brief (5-10min) [id number] 12/07/19 15 DOMINIC HERBERT [facility] Non-Physician Phone Call To Patient/Provider Brief (5-10min) Non-Physician Phone Call To Patient/Provide r Brief (5-10min) [id number] 11/21/19 15 CALIXTO PEREA [facility] Non-Physician Phone Call To Patient/Provider Brief (5-10min) Non-Physician Phone Call To Patient/Provide r Brief (5-10min) [id number] 05/31/20 14 NICK LOERA [facility] Non-Physician Phone Call To Patient/Provider Brief (5-10min) Non-Physician Phone Call To Patient/Provide r Brief (5-10min) [id number] 04/24/20 14 JANNETTE VENTURA [facility] Non-Physician Phone Call To Pt/Provider Intermed (11-20 min) Non-Physician Phone Call To Pt/Provider Intermed (11-20 min) [id number] 10/20/19 14 MARKIE TORRES [facility] Non-Physician Phone Call To Patient/Provider Brief (5-10min) Non-Physician Phone Call To Patient/Provide r Brief (5-10min) [id number] 04/06/20 13 DEJA VELA [facility] Non-Physician Phone Call To Pt/Provider Intermed (11-20 min) Non-Physician Phone Call To Pt/Provider Intermed (11-20 min) [id number] 02/29/20 13 REBEL THOMAS [facility] Non-Physician Phone Call To Pt/Provider Intermed (11-20 min) Non-Physician Phone Call To Pt/Provider Intermed (11-20 min) [id number] 02/18/20 13 SHERI DOWNING [facility] Non-Physician Phone Call To Patient/Provider Brief (5-10min) Non-Physician Phone Call To Patient/Provide r Brief (5-10min) [id number] 06/04/20 12 CHU GARCIA [facility] Non-Physician Phone Call To Patient/Provider Brief (5-10min) Non-Physician Phone Call To Patient/Provide r Brief (5-10min) [id number] 05/06/20 12 CHU GARCIA [facility] Non-Physician Phone Call To Patient/Provider Brief (5-10min) Non-Physician Phone Call To Patient/Provide r Brief (5-10min) [id number] 03/10/20 12 CHU GARCIA Non-Physician Phone Call To Patient/Provider Brief (5-10min) Non-Physician Phone Call To Patient/Provide r Brief (5-10min) [id number] 02/17/20 12 CHU GARCIA Non-Physician Phone Call To Patient/Provider Brief (5-10min) Non-Physician Phone Call To Patient/Provide r Brief (5-10min) [id number] 12/24/19 12 CHU GARCIA Non-Physician Phone Call To Patient/Provider Brief (5-10min) Non-Physician Phone Call To Patient/Provide r Brief (5-10min) [id number] 12/19/19 12 CHU GARCIA Non-Physician Phone Call To Patient/Provider Brief (5-10min) Non-Physician Phone Call To Patient/Provide r Brief (5-10min) [id number] 12/02/19 12 REBEL THOMAS [facility] Non-Physician Phone Call To Patient/Provider Brief (5-10min) Non-Physician Phone Call To Patient/Provide r Brief (5-10min) [id number] 10/15/19 12 REBEL THOMAS [facility] Non-Physician Phone Call To Patient/Provider Brief (5-10min) Non-Physician Phone Call To Patient/Provide r Brief (5-10min) [id number] 09/25/20 11 CHU GARCIA Non-Physician Phone Call To Patient/Provider Brief (5-10min) Non-Physician Phone Call To Patient/Provide r Brief (5-10min) [id number] 06/04/20 11 CHU GARCIA Non-Physician Phone Call To Patient/Provider Brief (5-10min) Non-Physician Phone Call To Patient/Provide r Brief (5-10min) [id number] 11/04/19 11 CHUCHO MUSTAFA [facility] Colorectal cancer screening; colonoscopy on individual not meeting criteria for high risk 01/22/20 10 AREN CARBONE [facility] Non-Physician Phone Call To Patient/Provider Brief (5-10min) Non-Physician Phone Call To Patient/Provide r Brief (5-10min) [id number] 12/26/19 10 DAYANA MONTIEL [facility] Echocardiogram (2-D) 0 06 KING, JOSH Sunshine [facility] Echo (Doppler) Color Flow Velocity Mapping Echo (Doppler) Color Flow Velocity Mapping [id number] 12/27/19 06 KINGJOSH Reeves [facility] Echo (Doppler) Echo (Doppler) [id number] 12/27/19 06 KINGJOSH Reeves [facility] Waiver services; not otherwise specified (NOS) MELISSA FRANZ [facility] Social History Combined list of available smoking, tobacco, and other social history from Department of Defense and Veterans Affairs facilities. Social History Type Response Date Comment Sour e This section is an empty social history section. DoD Assessment and Plan Combined list of future care activities from Department of Defense and Veterans Affairs facilities (e.g., assessment and plan notes, appointments, orders, and referrals). Additional future care activities may be listed in the Plan of Care section. Result Assessment and Plan Date Source Assessment and Plan No data available for this section 05/26/2025 Ambulatory Pharmacy Functional Status Combined list of recent functional and cognitive assessments recorded at Department of Defense and Veterans Affairs (VA).VA Functional [place] Measurement (FIM) Scale: 1 = Total Assistance (Subject = 0% +), 2 = Maximal Assistance (Subject = 25% +), 3 = Moderate Assistance (Subject = 50% +), 4 = Minimal Assistance (Subject = 75% +), 5 = Supervision, 6 = Modified [place] (Device), 7 = Complete [place] (Timely, Safely). Assessment Date/Time Source Assessment Type Assessment Skill Assessment Score Assessment Details No data available for this section
--- OUTSIDE RECORDS SUMMARY | 2025-05-26 08:18 | XMS_ITS | Clinical Summary ---
Author Organization [facility] Address [address] [place] [address] Care Team Providers Care Sergeant Of Officers Name Role Phone Unavailable Primary Care Provider Unavailabl e Source Comments [facility],non-owned Affiliates and Associated Physician Practices is amultiple site organization consisting of ambulatory clinics and hospital sitesin [place], [place], [place] and [place]. This disclosure is being madepursuant to the Care Everywhere program and may not contain all information available regarding this patient. 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
--- OUTSIDE RECORDS SUMMARY | 2025-05-26 08:19 | XMS_ITS | Clinical Summary ---
Author Organization [facility] [address] [facility] [address] Address [address] [place] [address] Care Team Providers Care Team Assembly Line Machine Operator Name Role Phone Rosenda Canseco WINDOW INSTALLATION SUBCONTRACTOR Primary Care Provide r Allergies Active Allergy [...] Int'l Units by mouth daily. 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 Gender Identity Female 11/11/2021 8:16 PM DIRECTOR OF COMMUNITY SERVICES Sexual Orientation Not on file Obstetrics History Last Filed Vital Signs Vital Sign Reading Time Taken Comments Blood Pressure 112/80 12/12/2021 9:38 AM CDT Pulse 75 12/12/2021 9:38 AM CDT Temperature 36.7 C (98.1 F) 07/22/2021 12:52 PM CDT Respiratory Rate 16 11/14/2021 1:05 PM DIRECTOR OF COMMUNITY SERVICES Oxygen Saturation 97% 12/12/2021 9:38 AM CDT Inhaled Oxygen Concentration - - Weight 88.9 kg (196 lb) 12/12/2021 9:38 AM CDT Height 167.6 cm (5' 6) 12/12/2021 9:38 AM CDT Body Mass Index 31.64 12/12/2021 9:38 AM CDT Plan of Treatment Not on file Insurance MEDICARE [facility] Address: [facility] [address] [place] [address] FOR [facility] MEDICARE [facility] CLAIMS Advance Directives For more information, please contact: [phone] * Full Code (Latest Code Status on File) Date Activated Date Inactivated Comments 07/22/2021 10:49 AM 07/22/2021 5:20 PM * Full Code Date Activated Date Inactivated Comments 07/22/2021 10:48 AM 07/22/2021 10:49 AM Care Teams Team Assembly Line Machine Operator Relationship Specialty Start Date End Date oRsenda Canseco NP [address] [place] [address] PCP - General Nurse Practitioner 11/27/21
--- OUTSIDE RECORDS SUMMARY | 2025-05-26 08:19 | XMS_ITS | Patient Health Record ---
Author Organization [facility] Address [address] [place], [place] [id number] Care Team Providers Care Supervisor Residential Name Role Phone BRANDI FORD Unavailable [phone] Milo Galdamez Unavailable Unavailable Allergies Allergen (clinical [...] Start Date Coverage End Date Medicare Part [facility] [address] [place] [address] [id number] JALEEL CASON Self - patient is the insured for Life [employer] [address] [place], [place] [id number] JALEEL CASON Self - patient is the insured [facility] [address] [place], [place] [id number] JALEEL CASON Self - patient is the insured Medical (General) History Medical History History ICD Code Cancer Arthritis varicose veins Surgical History Surgery Date(Month/Year) Hysterectomy lumpectomy
[2025-05-26 08:22] LABS: Hematocrit 43.2 % (35.0-42.0); Hemoglobin 13.9 g/dL (11.7-13.8); Immature Granulocyte Percent A 0.1 % (0.0-0.0); Lymphocytes Absolute Auto 2.86 K/mm3 (1.10-4.50); Mean Corpuscular HGB Conc 32.2 g/dL (32-36); Mean Corpuscular Hemoglobin 28.4 pg (27.0-31.0); Mean Corpuscular Volume 88.3 fL (78.0-102.0); Nucleated Red Blood Cells Absolute Auto 0.00 K/mm3 (0.00-0.00); Nucleated Red Blood Cells Perc 0.0 % (0-0.0); Platelet Count Result 366 K/mm3 (150-420); Red Blood Count 4.89 M/mm3 (4.20-5.40); White Blood Count 7.2 K/mm3 (4.8-10.8)
[2025-05-26 09:46] LABS: Thyroid Stimulating Hormone Reflex 1.430 uIU/mL (0.465-4.68)
[2025-05-26 10:26] LABS: Alanine Aminotransferase 19 U/L (6-35); Albumin Level 4.4 g/dL (3.5-5.1); Alkaline Phosphatase 77 U/L (38-126); Anion Gap 9 mmol/L (4-12); Aspartate Amino Transferase 26 U/L (14-36); Bilirubin,Total 0.8 mg/dL (0.2-1.3); Blood Urea Nitrogen 18 mg/dL (7-17); Calcium 9.9 mg/dL (8.4-10.2); Carbon Dioxide 30 mmol/L (22-30); Chloride 103 mmol/L (98-107); Cholesterol 203 mg/dL (0-200); Estimated Glomerular Filt Rate > 60; Glucose 113 mg/dL (65-110); HDL Direct 49 mg/dL; Osmolality Calculated 296 mOsm/kg (285-295); Potassium 4.4 mmol/L (3.4-5.0); Sodium 142 mmol/L (137-145); Total Protein 7.1 g/dL (6.3-8.2); Triglycerides 181 mg/dL (<150)
== END 2025-05-26 08:12 | disposition home or self-care (01) ==
LOC: CHSLAB 08:12
PROVIDERS: PCP Family Medicine; Visit Provider Family Medicine
DX: E03.9 Hypothyroidism, unspecified (principal); E78.00 Pure hypercholesterolemia, unspecified; F41.1 Generalized anxiety disorder
CPT/HCPCS: 36415; 80053; 80061; 84443; 85025